=== PATIENT | female | born 1950 | race Hispanic/Latino ===

== ENCOUNTER 2018-03-03 20:32 | Inpatient (IN) | payer SELFPAY ==
[~2018-03-03 20:32] MED LIST: ISOVUE-370 76%-LOCM 1 ML ONE
[2018-03-03 21:48] LABS: #Eosinphils 0.1 thou/uL (0.0-0.7); #Lymphocytes 1.9 thou/uL (1.20-3.40); #Monocytes 0.8 thou/uL (0.11-0.59); #Neutrophils 3.4 thou/uL (1.40-6.50); %Basophils 0.1 % (0.0-1.0); %Eosinophils 1.3 % (0.0-10.0); %Lymphocytes 30.5 % (21.0-51.0); %Monocytes 13.1 % (0.0-10.0); Hemoglobin 12.7 g/dL (12.0-16.0); Mean Corpuscular HGB CONC 34.1 g/dL (32.0-36.0); Mean Platelet Volume 7.4 fL (7.4-10.4); Platelet Count 389 thou/uL (130-400); Red Blood Cell (RBC) Count 4.22 mill/uL (4.20-5.40); White Blood Cell (WBC) Count 6.2 thou/uL (4.8-10.8)
[2018-03-03 22:02] LABS: Bilirubin Negative (Negative); Blood, Urine Trace (Negative); Clarity CLEAR (Clear); Glucose, Urine (Dipstick) Negative (Negative); Leukocyte Negative (Negative); Nitrite Negative (Negative); Protein, Urine (Dipstick) Negative (Neg-Trace); Specific Gravity, Urine 1.012 (1.002-1.036)
[2018-03-03 22:04] LABS: Bacteria/HPF Rare-Few HPF (None Seen); Hyaline Casts/LPF 0-3 HYALINE CAST LPF (0-3 Hyaline); Pathc Cast-AUWi Flag 0.14 (0-2.49); RBC/HPF 0-3 HPF (0-3); Squamous Epithelial 0-3 HPF (0-3); WBC/HPF 0-3 HPF (0-3)
[2018-03-03 22:09] LABS: ALT (SGPT) 19 U/L (8-55); AST (SGOT) 20 U/L (5-34); Albumin 3.9 g/dL (3.4-4.8); Alkaline Phosphatase 96 U/L (40-150); Anion Gap 13 mmol/L (10-20); BUN (Urea Nitrogen) 15 mg/dL (9.8-20.1); Bilirubin, Total 0.3 mg/dL (0.2-1.2); Calc. Creatinine Clearance 0 mL/min (70-130); Calcium 9.8 mg/dL (7.8-10.44); Carbon Dioxide 25 mmol/L (23-31); Chloride 102 mmol/L (98-107); Estimated GFR-MDRD 70; Globulin 4.5 g/dL (2.4-3.5); Glucose 137 mg/dL (80-115); Potassium 3.3 mmol/L (3.5-5.1); Protein, Total 8.4 g/dL (6.0-8.3); Sodium 137 mmol/L (136-145)
[2018-03-03 22:13] LABS: CKMB 0.7 ng/mL (0-6.6); Troponin I Less than 0.010 ng/mL (< 0.028)
--- NOTE | 2018-03-03 23:45 | CT ---
CTA OF THE CHEST WITH CONTRAST 03/03/18 COMPARISON: None. HISTORY: Syncope and collapse with chest pain and night sweats. TECHNIQUE: Multiple contiguous axial images were obtained in a CTA of the chest with contrast per pulmonary embo lism protocol. 3D oblique MIP reformats and direct coronal reformats were performed. FINDINGS: The pulmonary arteries are well opacified without filling defects to suggest pulmonary emboli. The he art is normal in size. No hilar or mediastinal lymphadenopathy are seen. There is a large left pleur al effusion. There is significant collapse/atelectasis of the left lung secondary to large pleural ef fusion. No right pleural effusion is seen. No right sided infiltrates or nodules are seen. The visualized subdiaphragmatic structures are unremarkable. Degenerative changes are seen in the spi ne. The chest wall soft tissues are unremarkable. The patient has an aberrant right subclavian artery which courses posterior to the esophagus and trachea. IMPRESSION: 1. Large left pleural effusion with adjacent collapse/atelectasis of the left lung. 2. Aberrant right subclavian artery. 3. No evidence of pulmonary thromboembolism. POS: KARI
[2018-03-04] MEDS ORDERED: Azithromycin 500 MG VIAL ONE (00:20)
--- NOTE | 2018-03-04 00:59 | PDOC.FPRHP ---
- History of Present Illness Chief Complaint: syncope and collapse History of Present Illness: Lisa Caldwell is a 68 year old F with a PMH of htn, hld, and DM2 who presented to the ED for syncope and collapse. Patient is a filipino speaking lady from [place]. She moved here 13 year ago and has not been out of the country since arrival. She is accompanied by her daughter who provided the majority of the history. Daughter states that the patient has not been feeling well for the past month. States that she has had a cough and has complained of central chest pain and some dyspnea, as well as night sweats. Patient works at a restaurant doing dishes. Daughter also stated that for the last 15 days she has had decreased appetite and has lost about 20 pounds during that time. She has had associated nausea/vomiting and diarrhea during the last month as well. She was started on a new BP medication about a month ago but there have been no other recent changes in her medications. Denies any similar symptoms in the past. ED Course: In the ED, CT was done due to elevated D-Dimer, CT chest showed large right pleural effusion and no evidence of PE. Patient was given 2 g IV rocephin, 500 mg azithromycin, 2 L NS, Aspirin 324 mg, Dueneb 3 mL. - Allergies/Adverse Reactions Allergies Allergy/AdvReac Type Severity Reaction Status Date / Time No Known Drug Allergies Allergy Verified 03/04/18 01:57 - Home Medications Medication Instructions Recorded Confirmed Type Ergocalciferol (Vitamin D2) 50,000 unit PO Q7D 03/04/18 03/04/18 History [Vitamin D2] Simvastatin 20 mg PO HS 03/04/18 03/04/18 History metFORMIN [Glucophage] 500 mg PO BID-WM 03/04/18 03/04/18 History Comments: Unable to obtain complete reliable medication list at this time - History PMHx: HTN, HLD, Type 2 Diabetes Mellitus PSHx: None FHx: Denies any cancer in family Social: At least a 10, possibly more, pack year history of smoking quit 5 years ago, denies alcohol or drug use. - Review of Systems General: reports: weight/appetite/sleep changes (weight and appetite change), night sweats, fatigue. denies: fever/chills Eyes: denies: eye pain, vision changes ENT: denies: nasal congestion, rhinorrhea Respiratory: reports: cough, shortness of breath, exercise intolerance. denies : congestion Cardiovascular: reports: chest pain. denies: palpitation, edema, paroxysmal nocturnal dyspnea, orthopnea Gastrointestinal: reports: nausea, vomiting, diarrhea. denies: constipation, GI bleeding Genitourinary: denies: incontinence, dysuria, polyuria Skin: denies: rashes, lesions Musculoskeletal: denies: pain, tenderness, stiffness, swelling Neurological: reports: weakness. denies: numbness, syncope, seizure Psychological: reports: depression. denies: anxiety - Vital signs BP: 166/87 HR: 102 RR: 20 Tmax: 97.9 Pox: 93% on 2L Wt: 61 kg - Physical Exam Constitutional: NAD, awake, alert and oriented, well developed HEENT: normocephalic and atraumatic, PERRLA, EOMI, conjunctiva clear, no scleral icterus, grossly normal vision, TM's clear and intact, grossly normal hearing, normal nasal mucosa, MMM, oropharynx clear Neck: supple, FROM, trachea midline, no LAD Heart: RRR, normal S1/S2, no murmurs/rubs/gallops, pulses present, no edema Lungs: no respiratory distress -Lungs: decrease air movement on the entire right side Abdomen: soft, non-tender, bowel sounds present, no masses/distention Musculoskeletal: normal structure, normal tone, ROM grossly normal Neurological: no focal deficit, CN II-XII intact, normal sensation Skin: no rash/lesions, good turgor, capillary refill <2 seconds Heme/Lymphatic: no unusual bruising or bleeding, no purpura, no petechia Psychiatric: normal mood and affect FMR H&P: Results - Labs Result Diagrams: 03/04/18 03:55 03/04/18 03:55 Lab results: WBC 6.2 thou/uL (4.8-10.8) 03/03/18 21:10 Hgb 12.7 g/dL (12.0-16.0) 03/03/18 21:10 Hct 37.1 % (36.0-47.0) 03/03/18 21:10 MCV 88.0 fl (81.0-99.0) 03/03/18 21:10 Plt Count 389 thou/uL (130-400) 03/03/18 21:10 Neutrophils % 55.0 % (42.0-75.0) 03/03/18 21:10 Sodium 137 mmol/L (136-145) 03/03/18 21:10 Potassium 3.3 mmol/L (3.5-5.1) L 03/03/18 21:10 Chloride 102 mmol/L (98-107) 03/03/18 21:10 Carbon Dioxide 25 mmol/L (23-31) 03/03/18 21:10 BUN 15 mg/dL (9.8-20.1) 03/03/18 21:10 Creatinine 0.81 mg/dL (0.6-1.1) 03/03/18 21:10 Glucose 137 mg/dL (80-115) H 03/03/18 21:10 Calcium 9.8 mg/dL (7.8-10.44) 03/03/18 21:10 Total Bilirubin 0.3 mg/dL (0.2-1.2) 03/03/18 21:10 AST 20 U/L (5-34) 03/03/18 21:10 ALT 19 U/L (8-55) 03/03/18 21:10 Alkaline Phosphatase 96 U/L (40-150) 03/03/18 21:10 CK-MB (CK-2) 0.7 ng/mL (0-6.6) 03/03/18 21:10 Serum Total Protein 8.4 g/dL (6.0-8.3) H 03/03/18 21:10 Albumin 3.9 g/dL (3.4-4.8) 03/03/18 21:10 Urine Ketones Negative mg/dL (Negative) 03/03/18 21:49 Urine Blood Trace (Negative) H 03/03/18 21:49 Urine Nitrite Negative (Negative) 03/03/18 21:49 Ur Leukocyte Esterase Negative (Negative) 03/03/18 21:49 Urine RBC 0-3 HPF (0-3) 03/03/18 21:49 Urine WBC 0-3 HPF (0-3) 03/03/18 21:49 Ur Squamous Epith Cells 0-3 HPF (0-3) 03/03/18 21:49 Urine Bacteria Rare-Few HPF (None Seen) 03/03/18 21:49 - EKG Interpretation EKG: NSR without ST changes - Radiology Interpretation CT scan - chest Status: image reviewed by me, report reviewed by me (large left pleural effusion with adjacent collapse/atelectasis of left lung, abberant right subclavian artery, no evidence of pulmonary thromboembolism) FMR H&P: A/P - Problem List (1) Pleural effusion, left Current Visit: Yes Status: Acute Code(s): J90 - PLEURAL EFFUSION, NOT ELSEWHERE CLASSIFIED (2) Type 2 diabetes mellitus Current Visit: Yes Status: Chronic (3) HTN (hypertension) Current Visit: Yes Status: Chronic Code(s): I10 - ESSENTIAL (PRIMARY) HYPERTENSION (4) HLD (hyperlipidemia) Current Visit: Yes Status: Chronic Code(s): E78.5 - HYPERLIPIDEMIA, UNSPECIFIED - Plan (1) Large Left Pleural Effusion - Appears to be subacute, patient is hemodynamically stable, 1 mo hx of night sweats, weakness, weight loss - DDx includes malignancy vs infectious. PE r/o with CT chest, venogram pending - Continue supplement O2 to maintain oxygen sats - Empiric treatment with azithromycin and rocephin, no fevers or WBC - Checking TB quant, ur strep and legionella - Checking TSH - Airborne precautions until infectious cause ruled out - Will likely need therapeutic thoracentesis in AM - Consider consulting pulm in AM (2) DM2 - Holding home metformin - SSI, Accuchecks ACHS (3) HTN - Continue home medication regimen once med reconciliation complete - Continue to monitor - PRN labetalol IV (4) HLD - Continue home statin (5) Depression - Cont to monitor CODE STATUS: FULL CODE Disposition/LOS: Anticipate discharge home at hospital admission > 48 hr FMR H&P: Upper Level - Pertinent history 68 y/o F with 1 month history of weakness and decreased appetite presents for SOB. SOB has been present for 15 days. Associated cough, sputum production, weakness, weight loss(30lb), night sweats/chills. & leg pain. Did smoke for ~10 yrs but stopped 5 yrs ago. Currently only complains of SOB - Pertinent findings GEN: mild distress, labored breathing eYES: EOMI< PERRLA CARDIO: RR, no MRG, distal pulses present RESP: labored breathing and tachypnea, Diminished sound on L. No wheezing, ronchi, rales LE: nontender, no edema strength preserved NEURO: A&O x3, no focal deficits - Plan Date/Time: 03/04/18 0059 I, Ashish Torres, have evaluated this patient and agree with findings/plan as outlined by internet assessor resident. Pertinent changes/additions are listed here. 1. L Large Pleural Effusion: Infectious vs malignant cause. Have given empiric Rocephin/Azithromycin, but without leukocytosis/fever. cultures obtained. Plan for diagnostic/therapeutic thoracentesis tomorrow AM with fluid studies. On 2L BNC maintaining saturations. 2. T2DM: mild SSI, hold metformin 3. HTN: Continue home medications. BPs elevated in ED, continue to monitor. 4. HLD: On Statin 5. Hx/o Depression" monitor for symptoms 6. Leg Pain: Chronic problem, negative US for DVT 7. FEN: ADA diet, Maintenance IVF, Replete lytes as needed(Potassium 3.3) DVT ppx: Lovenox Attending Addendum - Attending Addendum Date/Time: 03/04/18 1122 I personally evaluated the patient and discussed the management with Dr. Alcaraz and team. I agree with and repeated the History, Examination, Assessment and Plan documented above with any addition or exceptions noted below. Patient with several week history of night sweats (has soaked sheets, had to change clothes reportedly) and subjective fevers, as well as cough and progressive worsening of breath. No chest pain. Acute hypoxic respiratory failure 2/2 new very large left pleural effusion. -Will plan on dx and tx thoracentesis, ultrasound guided. Monitor her respiratory status closely. Does not need additional support besides nasal cannula at this time but as risk for decompensation -on POCUS very large effusion extending almost to the apex of her lung on the left, no septations or signs of empyema -CT scan reviewed -plan for CC and dx, GS and Cx, LDH, total protein, glucose, AFB, ADA, cytology
[2018-03-04] MEDS ORDERED: HumaLOG 300 UNITS/3 ML VIAL SC PRN (01:07)
[2018-03-04] MEDS ORDERED: Dextrose 5% in Water 1,000 ML IV PRN (01:07)
[2018-03-04] MEDS ORDERED: Dextrose 50% Abboject 50 ML SYRINGE SLOW IVP PRN (01:07)
[2018-03-04] MEDS ORDERED: Lactated Ringer's 1,000 ML IV SCH (01:15)
[2018-03-04] MEDS ORDERED: Labetalol HCl 100 MG/20 ML VIAL SLOW IVP PRN (01:17)
[2018-03-04 01:19] LABS: Troponin I Less than 0.010 ng/mL (< 0.028)
[2018-03-04] MEDS: Melatonin 3 MG TAB PO PRN ×2 (03:16→21:09)
[2018-03-04] MEDS: Potassium Chloride 20 MEQ in Lactated Ringer's 1,000 ML IV SCH ×2 (03:16→18:49)
[2018-03-04 04:51] LABS: #Eosinphils 0.1 thou/uL (0.0-0.7); #Lymphocytes 1.7 thou/uL (1.20-3.40); #Monocytes 0.7 thou/uL (0.11-0.59); #Neutrophils 3.2 thou/uL (1.40-6.50); %Basophils 0.1 % (0.0-1.0); %Eosinophils 1.7 % (0.0-10.0); %Lymphocytes 30.1 % (21.0-51.0); %Monocytes 12.5 % (0.0-10.0); %Neutrophils 55.6 % (42.0-75.0); Hemoglobin 13.2 g/dL (12.0-16.0); Mean Corpuscular HGB CONC 33.5 g/dL (32.0-36.0); Mean Corpuscular Hemoglobin 29.5 pg (27.0-31.0); Mean Corpuscular Volume 87.9 fl (81.0-99.0); Mean Platelet Volume 7.3 fL (7.4-10.4); Platelet Count 387 thou/uL (130-400); RBC Distribution Width 12.1 % (11.5-14.5); Red Blood Cell (RBC) Count 4.47 mill/uL (4.20-5.40); White Blood Cell (WBC) Count 5.7 thou/uL (4.8-10.8)
[2018-03-04 05:10] LABS: Anion Gap 14 mmol/L (10-20); BUN (Urea Nitrogen) 10 mg/dL (9.8-20.1); Calc. Creatinine Clearance 82 mL/min (70-130); Calcium 9.3 mg/dL (7.8-10.44); Carbon Dioxide 22 mmol/L (23-31); Chloride 104 mmol/L (98-107); Estimated GFR-MDRD Greater than 90; Glucose 104 mg/dL (80-115); Potassium 3.9 mmol/L (3.5-5.1); Sodium 136 mmol/L (136-145)
[2018-03-04 05:13] LABS: Troponin I Less than 0.010 ng/mL (< 0.028)
[2018-03-04] MEDS ORDERED: Ergocalciferol 1.25 MG(50,000 UNITS) CAP PO SCH (06:00)
[2018-03-04 07:45] LABS: Legionella Urinary Ag Negative (Negative); Strep pneumo Urine Ag NEGATIVE (NEGATIVE)
[2018-03-04] MEDS: Azithromycin 250 MG TAB PO SCH (08:18)
[2018-03-04] MEDS: Enoxaparin Sodium 40 MG/0.4 ML SYRINGE SC SCH (08:18)
[2018-03-04] MEDS: Ergocalciferol 1.25 MG(50,000 UNITS) CAP PO SCH (08:22)
--- NOTE | 2018-03-04 08:28 | ULT ---
PRELIMINARY REPORT/[facility]/EMERGENTY AFTER-HOURS PROCEDURE US Duplex Bilateral Lower Extremity Veins CLINICAL HISTORY: 68 years old, female; Pain and abnormal findings; Abnormal lab test; Elevated d-dimer; Leg, lower; Bi lateral TECHNIQUE: Real-time duplex ultrasound scan of the bilateral lower extremity veins integrating B-mode two dimens ional vascular structure, Doppler spectral analysis, color flow Doppler imaging and compression. COMPARISON: No relevant prior studies available. FINDINGS: Right leg: No visible clot in the included veins. The included veins appear normally compressible. Duplex Doppler evaluation demonstrates flow in the evaluated veins. Left leg: No visible clot in the included veins. The included veins appear normally compressible. Duplex Doppler evaluation demonstrates flow in the evaluated veins. IMPRESSION: No evidence of acute right lower extremity DVT. No evidence of acute left lower extremity DVT. Thank you for allowing us to participate in the care of your patient. Dictated and Authenticated by: Chris Recio MD 03/04/2018 12:35 AM Central Time ([place] & [place]) ULTRASOUND VENOUS BILATERAL DOPPLER: HISTORY: Elevated D-dimer. TECHNIQUE: Real-time, carmona scale, color flow, and spectral analysis of the bilateral lower extremity venous syst ems was performed with a linear ray transducer. The common femoral, femoral, proximal portion of gre ater saphenous and deep femoral veins as well as the popliteal and posterior tibial veins were interr ogated. IMPRESSION: No deep venous thrombosis. POS: TOM
[2018-03-04] MEDS ORDERED: Lidocaine 1% (PF) 30 ML VIAL SC SCH (09:00)
[2018-03-04 09:25] LABS: INR-International Normal Ratio 1.1; Prothrombin Time 14.8 SEC (12.0-14.7)
[2018-03-04 09:26] LABS: PTT 45.8 SEC (22.9-36.1)
[2018-03-04] MEDS ORDERED: Lidocaine 1% w/Epinephrine 1:100K 20 ML VIAL ONE (11:00)
--- NOTE | 2018-03-04 12:02 | OP-2 ---
THORACENTESIS PROCEDURE NOTE INDICATION: Large left-sided pleural effusion. OPERATORS: Dr. Rekha Carranza and Dr. Deepak Crowder. ATTENDING PHYSICIAN: Dr. Vu Salvador. In attendance was also Dr. Lucrecia Dunne and patient's granddaughter. CONSENT: Consent was obtained from the patient, Mr. Caldwell prior to the procedure. Indication, risks and benefits were explained at length in the patient's language. PROCEDURE SUMMARY: A timeout was performed and the chest x-ray was reviewed. The appropriate side was confirmed and marked. My hands were washed immediately prior to the procedure. The patient was prepped and draped in a sterile manner using chlorhexidine scrub after the appropriate level was percussed and confirmed by ultrasound. A 5-cm effusion pocket was seen prior to procedure. Lidocaine 1% was used to anesthetize the skin, subcutaneous tissue, superior aspect of the rib, periosteum and parietal pleura. A finder needle was introduced over the superior aspect of the rib to locate the pleural fluid. Approximately 1 cm of color straw colored fluid was aspirated at a depth of approximately 2 cm. A 10-blade scalpel was used to alexei the skin at the insertion site. The [id number]-A-[id number] needle was then introduced through the skin incision into the pleural space using negative aspiration pressure and the red colorimetric indicator to confirm appropriate positioning of the needle. The thoracentesis catheter was then threaded without difficulty. A 860 mL of straw colored fluid was removed without difficulty. The catheter was then removed. No immediate complications were noted during the procedure. patient stated she was breathing better after the procedure. A post-procedure chest x- ray is pending at the time of this note. The fluid will be sent for studies to include cell count and histology, Gram stain and culture, LDH, pleural fluid, total protein of fluid, glucose of the fluid, AFB, smear and culture, ADA, cytology. Estimated blood loss is 2 Ml. Coagulation studies were performed prior to the procedure as well and were within normal limits. Dr. Vu Salvador, attending physician, who was present for the entire procedure. [facility]
[2018-03-04] MEDS: Acetaminophen 325 MG TAB PO PRN ×2 (12:03→19:08)
[2018-03-04 13:01] LABS: BF Color Yellow; Body Fluid Source THORACENTESIS FLD; Clarity Hazy (Clear); RBC Background Count 0.001; Tube # 1
[2018-03-04 13:02] LABS: WBC/NonHematic-Auto 3620 /cumm
[2018-03-04 13:23] LABS: Protein, Total 7.3 g/dL (6.0-8.3)
--- NOTE | 2018-03-04 13:28 | RAD ---
PORTABLE CHEST: HISTORY: Post thoracentesis. CORRELATION: CT chest from yesterday. FINDINGS: There continues to be moderate sized left pleural effusion, although the size of the effusion does ap pear decreased, consistent with the history of thoracentesis. The right lung is clear with no eviden ce of right-sided effusion. Heart size is prominent but not adequately evaluated due to the large le ft effusion. No pneumothorax is identified. IMPRESSION: Moderate left pleural effusion remains. POS: [facility]
[2018-03-04 14:01] LABS: BF RBC Count - Manual 4000 /cumm
[2018-03-04 16:38] LABS: BF Segmented Neutrophils 3 %; Cell Count Non Hematic 12 %; Lymphocytes 85 %
[2018-03-04] MEDS ORDERED: Atorvastatin Calcium 10 MG TAB PO SCH (21:00)
[2018-03-04] MEDS: Atorvastatin Calcium 10 MG TAB PO SCH (21:08)
[2018-03-05] MEDS: Potassium Chloride 20 MEQ in Lactated Ringer's 1,000 ML IV SCH ×4 (04:37→21:04)
[2018-03-05 05:41] LABS: #Eosinphils 0.2 thou/uL (0.0-0.7); #Lymphocytes 1.4 thou/uL (1.20-3.40); #Monocytes 0.6 thou/uL (0.11-0.59); #Neutrophils 2.7 thou/uL (1.40-6.50); %Basophils 0.3 % (0.0-1.0); %Eosinophils 3.6 % (0.0-10.0); %Lymphocytes 29.1 % (21.0-51.0); %Monocytes 12.4 % (0.0-10.0); %Neutrophils 54.6 % (42.0-75.0); Hemoglobin 12.4 g/dL (12.0-16.0); Mean Corpuscular HGB CONC 33.4 g/dL (32.0-36.0); Mean Corpuscular Hemoglobin 29.6 pg (27.0-31.0); Mean Corpuscular Volume 88.6 fl (81.0-99.0); Mean Platelet Volume 7.4 fL (7.4-10.4); Platelet Count 374 thou/uL (130-400); White Blood Cell (WBC) Count 4.9 thou/uL (4.8-10.8)
[2018-03-05 06:02] LABS: Anion Gap 9 mmol/L (10-20); BUN (Urea Nitrogen) 10 mg/dL (9.8-20.1); Calc. Creatinine Clearance 80 mL/min (70-130); Calcium 9.3 mg/dL (7.8-10.44); Carbon Dioxide 24 mmol/L (23-31); Chloride 107 mmol/L (98-107); Estimated GFR-MDRD Greater than 90; Glucose 139 mg/dL (80-115); Potassium 4.3 mmol/L (3.5-5.1); Sodium 136 mmol/L (136-145)
[2018-03-05] MEDS: Enoxaparin Sodium 40 MG/0.4 ML SYRINGE SC SCH (09:45)
[2018-03-05] MEDS: Azithromycin 250 MG TAB PO SCH (09:45)
--- NOTE | 2018-03-05 11:32 | PDOC.FM ---
- Subjective Subjective: Patient reports breathing is much improved compared to admission. She underwent thoracentesis yesterday, 860cc of straw colored fluid removed. Still requiring oxygen via NS to maintain sats. - Objective MAR Reviewed: Yes Vital Signs & Weight: Vital Signs (12 hours) Temp Pulse Resp BP Pulse Ox 03/05/18 04:00 98.2 F 83 18 149/76 H 95 03/05/18 00:00 98.8 F 88 18 137/73 92 L Weight Weight 60.464 kg I&O: 03/04/18 03/05/18 03/06/18 06:59 06:59 06:59 Intake Total 720 Balance 720 Result Diagrams: 03/05/18 04:49 03/05/18 04:49 <Deepak Crowder - Last Filed: 03/05/18 11:30> - Objective Vital Signs & Weight: Vital Signs (12 hours) Temp Pulse Resp BP Pulse Ox 03/05/18 12:00 97.4 F L 84 18 149/76 H 95 03/05/18 08:00 97.4 F L 84 18 144/80 H 95 03/05/18 04:00 98.2 F 83 18 149/76 H 95 Weight Weight 60.464 kg I&O: 03/04/18 03/05/18 03/06/18 06:59 06:59 06:59 Intake Total 720 720 Balance 720 720 Result Diagrams: 03/05/18 04:49 03/05/18 04:49 <Vu Salvador - Last Filed: 03/05/18 15:17> Phys Exam - Physical Examination Constitutional: NAD HEENT: moist MMs Neck: no nodes, no JVD Respiratory: no wheezing, no rales Cardiovascular: RRR, no significant murmur Gastrointestinal: soft, non-tender Musculoskeletal: no edema Neurological: moves all 4 limbs Psychiatric: normal affect, A&O x 3 <Deepak Crowder - Last Filed: 03/05/18 11:30> Dx/Plan (1) Exudative pleural effusion Code(s): J90 - PLEURAL EFFUSION, NOT ELSEWHERE CLASSIFIED Status: Acute Plan: -concerning given history of unintentional 20lbs weight loss over last few months coupled with night sweats -[place] [facility] -thoracentesis performed 03/04 and 860cc of straw colored fluid removed -preliminary studies show exudative process with further studies pending -Pulm consulted and following -symptomatically improved at this time (2) HLD (hyperlipidemia) Code(s): E78.5 - HYPERLIPIDEMIA, UNSPECIFIED Status: Chronic Plan: -continue statin (3) HTN (hypertension) Code(s): I10 - ESSENTIAL (PRIMARY) HYPERTENSION Status: Chronic Plan: -well controlled on no medications (4) Type 2 diabetes mellitus Status: Chronic Plan: -accuchecks qACHS -no SSI required in last 24 hours - Plan Plan: -Pulm following, we appreciate recommendations -f/u pleural fluid studies <Deepak Crowder - Last Filed: 03/05/18 11:30> (1) Pleural effusion, left Code(s): J90 - PLEURAL EFFUSION, NOT ELSEWHERE CLASSIFIED Status: Acute (2) Type 2 diabetes mellitus Status: Chronic (3) HTN (hypertension) Code(s): I10 - ESSENTIAL (PRIMARY) HYPERTENSION Status: Chronic (4) HLD (hyperlipidemia) Code(s): E78.5 - HYPERLIPIDEMIA, UNSPECIFIED Status: Chronic <Vu Salvador - Last Filed: 03/05/18 15:17> Attending Addendum - Attending Addendum Date/Time: 03/05/18 2875 I personally evaluated the patient and discussed the management with Dr. Crowder. I agree with and repeated the History, Examination, Assessment and Plan documented above with any addition or exceptions noted below. Improved sob this AM. No chest pain. Thora site feels fine. Had sweats last night, no recorded fever. No n/v or diarrhea/constipation. + cough still, no hemoptysis. RRR s M Right lung CTAB Left lung now audible, vesicular superiorly and bronchial at bases Await study results and any additional pulm recommendations. Likely repeat CXR. <Vu Salvador - Last Filed: 03/05/18 15:17>
[2018-03-05] MEDS: Acetaminophen 325 MG TAB PO PRN (14:55)
[2018-03-05] MEDS: cefTRIAXone\\ROCEPHIN 1 GM in Sodium Chloride 0.9% 100 ML IVPB SCH (15:43)
[2018-03-05] MEDS: Atorvastatin Calcium 10 MG TAB PO SCH (21:04)
--- NOTE | 2018-03-06 00:34 | CON ---
DATE OF CONSULTATION: 03/05/2018 SERVICE: Pulmonary Medicine. REASON FOR CONSULTATION: Pleural effusion. HISTORY OF PRESENT ILLNESS: The patient is a 68-year-old white female with past medical history significant for one-month history of weight loss of 20-30 pounds, night sweats and a little bit of cough. It is really not productive of much sputum. She presented to the emergency department. A CT PE was considered. She ended up getting a PE protocol, which was unremarkable. That being said, there was a very large left-sided pleural effusion present. She underwent a thoracentesis last night and it demonstrates a clear lymphocytic exudate. ADA was already sent for. Cytology was done and somebody in the Pathology Department has ordered flow cytometry. I was consulted to follow along for the time being. PAST MEDICAL HISTORY: 1. Hypertension. 2. Dyslipidemia. 3. Type 2 diabetes mellitus. PAST SURGICAL HISTORY: Thoracentesis on the left. FAMILY HISTORY: Noncontributory. SOCIAL HISTORY: She has a [id number] history of smoking, but quit 5 years ago. She denies any alcohol or illicit drug use. She moved here from [facility] over 13 years ago. She denies any known exposure to tuberculosis. ALLERGIES: No known drug allergies. MEDICATIONS: List of her inpatient medications was reviewed. No specific updates were made at this time. REVIEW OF SYSTEMS: General, head, ears, eyes, nose, throat, cardiovascular, respiratory, GI, , musculoskeletal, neurologic and skin is negative except as mentioned in the HPI. PHYSICAL EXAMINATION: VITAL SIGNS: Afebrile, pulse 84, blood pressure 149/76, respirations 18, saturation 95% on 2 liters nasal cannula. GENERAL: The patient is awake and alert, in no apparent distress. LUNGS: Excellent air entry on the right. There is a little reduced air entry at the left base. There is no prolonged expiratory phase. I do not appreciate wheezing or rhonchi. There are no crackles. HEART: Normal rate and regular. ABDOMEN: Soft, nontender, nondistended. Bowel sounds are positive. MUSCULOSKELETAL: No cyanosis or clubbing. There is no pitting in the bilateral lower extremities. NEUROLOGIC: Grossly nonfocal. LABORATORY DATA: WBC 4.9, hemoglobin 12.4, platelets 374,000. Monocyte count is normal. The differential is also normal. INR 1.1, D-dimer 11.42. Basic metabolic profile is unremarkable. Liver function studies are unremarkable. Troponin negative x3, LDH 219, serum protein 7.3. Urinalysis is unremarkable. She has trace blood, but red blood cells are 0-3. Lymphocyte count in the pleural fluid is 85%. It is a weak exudate by 3/3 criteria. Of note, no recent diuretics have been provided. The Strep and Legionella urine antigens were unremarkable. An ADA is currently pending. Urine culture, blood cultures x2, AFB smear in the pleural broth is all unremarkable. Body fluid culture is also negative to date. IMAGIN. Chest x-ray demonstrates interval improvement in the left-sided pleural effusion. Otherwise, there is no acute pleural parenchymal abnormality identified. 2. Ultrasound of the bilateral lower extremities demonstrates no evidence of DVT. 3. CTA of the chest demonstrates no evidence of a PE. There is a large left- sided pleural effusion with adjacent collapse/atelectasis of the left lung. Aberrant right subclavian artery is identified. No evidence of pulmonary thromboembolism is present. Additionally, there are no infiltrates characteristic of parenchymal pulmonary tuberculosis. ASSESSMENT: 1. Acute hypoxic respiratory failure, resolved. 2. Pleural effusion on the left, lymphocytic exudate. 3. Recent history of B symptoms. DISCUSSION AND PLAN: The patient had a lymphocytic predominant effusion. I will add rheumatoid factor and BECKY to tomorrow morning studies looking into inflammatory conditions. I think this will clipper and turner to be a lymphoma, though multiple things remain on her differential. The patient does not have any pleural parenchymal abnormalities on her CT of the chest. As such, if this is tuberculosis, she is not likely infectious. Pulmonary Critical Care will continue to follow along for the time being. The flow cytometry was ordered through the Pathology Department, so my suspicion is they saw something that was of concern. 70 minutes have been devoted to this patient in various activities. I personally reviewed all imaging studies and laboratory data noted within this document. For fifty percent of this time, I was interacting with the patient at the bedside or coordinating care with the care team. For the remainder of the time I was immediately available to the patient in the hospital unit. JOE
[2018-03-06] MEDS: Melatonin 3 MG TAB PO PRN ×2 (00:40→21:30)
[2018-03-06 05:22] LABS: #Eosinphils 0.1 thou/uL (0.0-0.7); #Lymphocytes 1.5 thou/uL (1.20-3.40); #Monocytes 0.7 thou/uL (0.11-0.59); #Neutrophils 2.9 thou/uL (1.40-6.50); %Basophils 0.2 % (0.0-1.0); %Eosinophils 2.5 % (0.0-10.0); %Lymphocytes 28.5 % (21.0-51.0); %Monocytes 13.6 % (0.0-10.0); %Neutrophils 55.2 % (42.0-75.0); Mean Corpuscular HGB CONC 33.4 g/dL (32.0-36.0); Mean Corpuscular Hemoglobin 29.8 pg (27.0-31.0); Mean Corpuscular Volume 89.1 fl (81.0-99.0); Mean Platelet Volume 7.4 fL (7.4-10.4); Platelet Count 393 thou/uL (130-400); Red Blood Cell (RBC) Count 4.38 mill/uL (4.20-5.40); White Blood Cell (WBC) Count 5.2 thou/uL (4.8-10.8)
[2018-03-06 05:37] LABS: Anion Gap 13 mmol/L (10-20); BUN (Urea Nitrogen) 12 mg/dL (9.8-20.1); Calc. Creatinine Clearance 68 mL/min (70-130); Calcium 9.7 mg/dL (7.8-10.44); Carbon Dioxide 24 mmol/L (23-31); Chloride 102 mmol/L (98-107); Estimated GFR-MDRD 78; Glucose 122 mg/dL (80-115); Potassium 4.4 mmol/L (3.5-5.1); Sodium 135 mmol/L (136-145)
--- NOTE | 2018-03-06 06:42 | PDOC.FM ---
- Subjective Subjective: Pt seen at bedside in NAD. DANDRE overnight. Pt notes she feels better, she endorses some cough with deep inspiration but otherwise denies CP, SOB, abd pain , NVD. - Objective MAR Reviewed: Yes Vital Signs & Weight: Vital Signs (12 hours) Temp Pulse Resp BP Pulse Ox 03/06/18 04:52 98.1 F 89 14 129/70 96 03/06/18 01:33 92 L 03/05/18 19:45 97.9 F 94 18 82 L 03/05/18 19:05 97.9 F 94 18 176/85 H 92 L Weight Weight 60.464 kg I&O: 03/04/18 03/05/18 03/06/18 06:59 06:59 06:59 Intake Total 720 1080 Balance 720 1080 Result Diagrams: 03/06/18 05:02 03/06/18 05:02 <Elie Coleman - Last Filed: 03/06/18 08:50> - Objective Vital Signs & Weight: Vital Signs (12 hours) Temp Pulse Resp BP Pulse Ox 03/06/18 09:19 97.4 F L 86 16 137/82 95 03/06/18 04:52 98.1 F 89 14 129/70 96 03/06/18 01:33 92 L Weight Weight 60.464 kg I&O: 03/05/18 03/06/18 03/07/18 06:59 06:59 06:59 Intake Total 720 1080 Balance 720 1080 Result Diagrams: 03/06/18 05:02 03/06/18 05:02 <Vu Salvador - Last Filed: 03/06/18 09:32> Phys Exam - Physical Examination Constitutional: NAD HEENT: moist MMs Respiratory: no wheezing some diminished sounds left lung base Cardiovascular: RRR, no significant murmur Gastrointestinal: soft, non-tender Musculoskeletal: no edema Neurological: moves all 4 limbs Psychiatric: normal affect, A&O x 3 <Elie Coleman - Last Filed: 03/06/18 08:50> Dx/Plan (1) Exudative pleural effusion Code(s): J90 - PLEURAL EFFUSION, NOT ELSEWHERE CLASSIFIED Status: Acute Plan: -thoracentesis performed 03/04 with 860cc of fluid removed -prelim studies show exudative fluid with additional cultures and flow cytometry pending -pt is [place] of [place] and endorses unintentional weight loss along with night sweats. ddx concerning for TB or malignancy. -quant gold pending -pulmonology consulted, recommendations greatly appreciated -symptomatically improving but still requiring supplemental oxygen via NC, continue attempts to wean as tolerated (2) Type 2 diabetes mellitus Status: Chronic Plan: -continue with accuchecks and SSI (3) HLD (hyperlipidemia) Code(s): E78.5 - HYPERLIPIDEMIA, UNSPECIFIED Status: Chronic Plan: -continue statin - Plan Plan: disposition: Pt stable. Awaiting further pleural fluid studies. Pulmonology recommendations greatly appreciated. Continue to monitor closely. <Elie Coleman - Last Filed: 03/06/18 08:50> (1) Pleural effusion, left Code(s): J90 - PLEURAL EFFUSION, NOT ELSEWHERE CLASSIFIED Status: Acute (2) Type 2 diabetes mellitus Status: Chronic (3) HTN (hypertension) Code(s): I10 - ESSENTIAL (PRIMARY) HYPERTENSION Status: Chronic (4) HLD (hyperlipidemia) Code(s): E78.5 - HYPERLIPIDEMIA, UNSPECIFIED Status: Chronic <Vu Salvador - Last Filed: 03/06/18 09:32> Attending Addendum - Attending Addendum Date/Time: 03/06/18931 I personally evaluated the patient and discussed the management with Dr. Coleman. I agree with and repeated the History, Examination, Assessment and Plan documented above with any addition or exceptions noted below. Still requiring O2. Acute hypoxic resp failure 2/2 pleural effusion -O2, wean as able -await studies -appreciate pulmonology recommendations <Vu Salvador - Last Filed: 03/06/18 09:32>
[2018-03-06] MEDS: Azithromycin 250 MG TAB PO SCH (09:20)
[2018-03-06] MEDS: Potassium Chloride 20 MEQ in Lactated Ringer's 1,000 ML IV SCH ×2 (09:21→19:36)
[2018-03-06] MEDS: Enoxaparin Sodium 40 MG/0.4 ML SYRINGE SC SCH (09:22)
[2018-03-06 09:56] LABS: ANA Symphony (Qualitative) Negative (Negative); EliA RAS New Method **** NEW METHOD ****; Rheumatoid Factor IgA Antibody 5.3 IU/mL (<14 Negative); Rheumatoid Factor IgM Antibody 1.5 IU/mL (<3.5 Negative); dsDNA IgG Antibody 1.8 IU/mL (<10 Negative)
[2018-03-06] MEDS: cefTRIAXone\\ROCEPHIN 1 GM in Sodium Chloride 0.9% 100 ML IVPB SCH (12:46)
--- NOTE | 2018-03-06 13:37 | PRG ---
DATE OF SERVICE: 03/06/2018 SERVICE: Pulmonary Medicine. INTERVAL HISTORY: The patient is doing absolutely fantastic today. She denies any chest pressure, nausea, vomiting, fevers, chills, shortness of breath or cough. She has essentially returned to her usual state of health. She is interested in when she is going to be able to get home. I discussed with her once again the progress that needs to be made before she can get out of here. We really need to delineate what the next step is going to be. If we have a diagnosis, obviously, we will start her towards therapy. If we do not, she may need a thoracoscopic VATS surgery in the next couple of weeks. Either way, she needs to have close attention and follow up. PHYSICAL EXAMINATION: VITAL SIGNS: Afebrile, pulse 88, blood pressure 131/84, respirations 18, saturation 94% on 1 L nasal cannula. GENERAL: The patient is awake and alert, in no apparent distress. LUNGS: Excellent air entry on the right. The left side has decreased air entry. HEART: Normal rate, regular. ABDOMEN: Soft, nontender, nondistended. Bowel sounds are positive. MUSCULOSKELETAL: No cyanosis or clubbing. There is no pitting in the bilateral lower extremities. NEUROLOGIC: Grossly nonfocal. LABORATORY DATA: CBC is unremarkable. Chemistries are also unremarkable. Her hemoglobin is stable. BECKY screen is negative. Rheumatoid factor screen is also unremarkable. The ADA on the pleural fluid is currently pending. ASSESSMENT: 1. Acute hypoxic respiratory failure, minimal. 2. Pleural effusion on the left, lymphocytic exudate. 3. Recent history of B symptoms, resolving. DISCUSSION AND PLAN: The differential remains wide. We have multiple studies that are currently pending. If this is tuberculous effusion, she is not infectious. Pathology must have seen something to prompt them towards getting flow cytometry. We will await the results of these studies before the next step is approached. Serologies are negative making sterile inflammatory effusions less likely. MTDD
[2018-03-06] MEDS: Atorvastatin Calcium 10 MG TAB PO SCH (21:30)
--- NOTE | 2018-03-07 06:18 | PDOC.FM ---
- Subjective Subjective: Pt seen at bedside in NAD. DANDRE overnight. No family at bedside. Pt notes she feels well, she still endorses some cough with deep inspiration but otherwise denies CP, SOB, abd pain, NVD. - Objective MAR Reviewed: Yes Vital Signs & Weight: Vital Signs (12 hours) Temp Pulse Resp BP Pulse Ox 03/07/18 04:00 98.2 F 91 18 132/72 94 L 03/06/18 20:15 98.9 F 99 22 H 03/06/18 19:36 98.9 F 99 22 H 136/78 92 L Weight Weight 60.464 kg I&O: 03/05/18 03/06/18 03/07/18 06:59 06:59 06:59 Intake Total 720 1080 3840 Balance 720 1080 3840 Result Diagrams: 03/06/18 05:02 03/06/18 05:02 <Elie Coleman - Last Filed: 03/07/18 06:49> - Objective Vital Signs & Weight: Vital Signs (12 hours) Temp Pulse Resp BP Pulse Ox 03/07/18 04:00 98.2 F 91 18 132/72 94 L Weight Weight 133 lb 4.8 oz I&O: 03/06/18 03/07/18 03/08/18 06:59 06:59 06:59 Intake Total 1080 3840 Balance 1080 3840 Result Diagrams: 03/06/18 05:02 03/06/18 05:02 <Andrea Beebe - Last Filed: 03/07/18 09:15> Phys Exam - Physical Examination Constitutional: NAD HEENT: moist MMs Respiratory: no wheezing, clear to auscultation bilateral some decreased air entry left base Cardiovascular: RRR, no significant murmur Gastrointestinal: soft, non-tender Musculoskeletal: no edema Neurological: non-focal, moves all 4 limbs Psychiatric: normal affect, A&O x 3 Skin: cap refill <2 seconds <Elie Coleman - Last Filed: 03/07/18 06:49> Dx/Plan (1) Exudative pleural effusion Code(s): J90 - PLEURAL EFFUSION, NOT ELSEWHERE CLASSIFIED Status: Acute Plan: -thoracentesis performed 03/04 with 860cc of fluid removed -prelim studies show lymphocytic exudative fluid with additional cultures and flow cytometry pending -pt is [place] and endorses unintentional weight loss along with night sweats. ddx concerning for TB or malignancy. -quant gold pending -flow cytometry reflex ordered by pathology, awaiting results -pulmonology consulted, recommendations greatly appreciated -autoimmune studies negative -symptomatically improving but still requiring supplemental oxygen via NC, continue attempts to wean as tolerated (2) Acute respiratory failure with hypoxia Code(s): J96.01 - ACUTE RESPIRATORY FAILURE WITH HYPOXIA Status: Acute Plan: -2/2 large left pleural effusion, improved -continue to wean oxygen as tolerated (3) Type 2 diabetes mellitus Status: Chronic Plan: -continue with accuchecks and SSI (4) HLD (hyperlipidemia) Code(s): E78.5 - HYPERLIPIDEMIA, UNSPECIFIED Status: Chronic Plan: -continue statin - Plan Plan: disposition: Pt stable. Still awaiting quant gold and flow cytometry. Pulmonology recommendations greatly appreciated. Pt states she will likely go back to [facility] for follow up. Continue to monitor. <Elie Coleman - Last Filed: 03/07/18 06:49> Attending Addendum - Attending Addendum Date/Time: 03/07/18913 I personally evaluated the patient and discussed the management with Dr. Coleman I agree with the History, Examination, Assessment and Plan documented above with any addition or exceptions noted below. Follow the TB gold report. Treat hypoxia. <Andrea Beebe - Last Filed: 03/07/18 09:15>
[2018-03-07] MEDS: Azithromycin 250 MG TAB PO SCH (09:38)
[2018-03-07] MEDS: Enoxaparin Sodium 40 MG/0.4 ML SYRINGE SC SCH (09:39)
--- NOTE | 2018-03-07 13:46 | PRG ---
DATE OF SERVICE: 03/07/2018 OBJECTIVE: VITAL SIGNS: Ms. Caldwell is afebrile, heart rate is 91, respiratory rate is 18, oximetry is 94%. LUNGS: Remarkable for decreased breath sounds in her left base. HEART: Regular rhythm. ABDOMEN: Soft. LABORATORY DATA: She has no new lab. Pathology was negative. Her pleural fluid was exudate with lymphocyte predominance. PLAN: She will probably end up needing a pleural biopsy. Flow studies were apparently ordered.
[2018-03-07] MEDS: cefTRIAXone\\ROCEPHIN 1 GM in Sodium Chloride 0.9% 100 ML IVPB SCH (14:57)
[2018-03-07] MEDS: Atorvastatin Calcium 10 MG TAB PO SCH (20:51)
[2018-03-07] MEDS: Melatonin 3 MG TAB PO PRN (21:57)
[2018-03-08] MEDS: Acetaminophen 325 MG TAB PO PRN (05:08)
--- NOTE | 2018-03-08 06:40 | PDOC.FM ---
- Subjective Subjective: Pt seen at bedside in NAD. DANDRE overnight. Daughter in law at bedside. Pt notes she feels well, she still endorses some cough with deep inspiration but otherwise denies CP, SOB, abd pain, NVD. - Objective MAR Reviewed: Yes Vital Signs & Weight: Vital Signs (12 hours) Temp Pulse Resp BP Pulse Ox 03/08/18 05:00 97.2 F L 95 16 132/84 95 03/08/18 02:00 93 L 03/07/18 19:59 99.4 F 98 18 143/92 H 93 L Weight Weight 60.464 kg I&O: 03/06/18 03/07/18 03/08/18 06:59 06:59 06:59 Intake Total 1080 3840 1440 Balance 1080 3840 1440 Result Diagrams: 03/06/18 05:02 03/06/18 05:02 <Elie Coleman - Last Filed: 03/08/18 07:21> - Objective Vital Signs & Weight: Vital Signs (12 hours) Temp Pulse Resp BP Pulse Ox 03/08/18 07:57 96.3 F L 95 16 135/82 93 L 03/08/18 05:00 97.2 F L 95 16 132/84 95 03/08/18 02:00 93 L Weight Weight 132 lb 8 oz I&O: 03/07/18 03/08/18 03/09/18 06:59 06:59 06:59 Intake Total 3840 1440 420 Balance 3840 1440 420 Result Diagrams: 03/06/18 05:02 03/06/18 05:02 <Andrea Beebe - Last Filed: 03/08/18 09:15> Phys Exam - Physical Examination Constitutional: NAD HEENT: moist MMs Respiratory: no wheezing, clear to auscultation bilateral Cardiovascular: RRR, no significant murmur Gastrointestinal: soft, non-tender Musculoskeletal: no edema Neurological: moves all 4 limbs Psychiatric: normal affect, A&O x 3 Skin: cap refill <2 seconds <Elie Coleman - Last Filed: 03/08/18 07:21> Dx/Plan (1) Exudative pleural effusion Code(s): J90 - PLEURAL EFFUSION, NOT ELSEWHERE CLASSIFIED Status: Acute Plan: -thoracentesis performed 03/04 with 860cc of fluid removed -prelim studies show lymphocytic exudative fluid with additional cultures and flow cytometry pending -pt is [place] and endorses unintentional weight loss along with night sweats. ddx concerning for TB or malignancy. -quant gold pending -flow cytometry reflex ordered by pathology, awaiting results -pulmonology consulted, recommendations greatly appreciated -autoimmune studies negative (2) Acute respiratory failure with hypoxia Code(s): J96.01 - ACUTE RESPIRATORY FAILURE WITH HYPOXIA Status: Resolved Plan: -2/2 large left pleural effusion, improved -pt stable off of nasal canula this AM (3) Type 2 diabetes mellitus Status: Chronic Plan: -continue with accuchecks and SSI (4) HLD (hyperlipidemia) Code(s): E78.5 - HYPERLIPIDEMIA, UNSPECIFIED Status: Chronic Plan: -continue statin - Plan Plan: disposition: Pt stable. Still awaiting quant gold and flow cytometry. Pulmonology recommendations greatly appreciated. Pt states she will likely go back to [facility] for follow up. Continue to monitor. <Elie Coleman - Last Filed: 03/08/18 07:21> Attending Addendum - Attending Addendum Date/Time: 03/08/18 1721 I personally evaluated the patient and discussed the management with Dr. Coleman I agree with the History, Examination, Assessment and Plan documented above with any addition or exceptions noted below. Continue current care for now with pulmonary services. <Andrea Beebe - Last Filed: 03/08/18 09:15>
[2018-03-08] MEDS: Enoxaparin Sodium 40 MG/0.4 ML SYRINGE SC SCH (09:38)
[2018-03-08] MEDS: cefTRIAXone\\ROCEPHIN 1 GM in Sodium Chloride 0.9% 100 ML IVPB SCH (13:09)
--- NOTE | 2018-03-08 15:17 | PRG ---
DATE OF SERVICE: 03/08/2018 SUBJECTIVE: Slept well last night. She has no complaints. OBJECTIVE: VITAL SIGNS: She is afebrile, heart rate 95, respiratory rate 16, oximetry is 93 on room air. His I 's 95, blood pressure 135/82. LUNGS: She has clear lung carr. HEART: Regular rhythm. ABDOMEN: Soft. LABORATORY DATA: Chem-7 have been repeated. Pathology was negative. IMPRESSION: What I could tell full studies are still pending. It is unclear when they will be back. If they are not back tomorrow morning, pleural biopsy should be considered.
[2018-03-08] MEDS: Atorvastatin Calcium 10 MG TAB PO SCH (20:43)
[2018-03-09] MEDS: Acetaminophen 325 MG TAB PO PRN (09:12)
[2018-03-09] MEDS: Enoxaparin Sodium 40 MG/0.4 ML SYRINGE SC SCH (09:15)
--- NOTE | 2018-03-09 09:20 | PDOC.FM ---
- Subjective Subjective: No acute events overnight. Denies shortness of breath, cough, chest pain this am. - Objective MAR Reviewed: Yes Vital Signs & Weight: Vital Signs (12 hours) Temp Pulse Resp BP Pulse Ox 03/09/18 07:59 99.1 F 97 20 123/68 91 L 03/09/18 05:28 92 L 03/09/18 04:42 98.9 F 104 H 20 133/73 93 L Weight Weight 60.101 kg I&O: 03/08/18 03/09/18 03/10/18 06:59 06:59 06:59 Intake Total 1440 1320 Balance 1440 1320 Result Diagrams: 03/06/18 05:02 03/06/18 05:02 <Chitra Jarvis - Last Filed: 03/09/18 11:22> - Objective Vital Signs & Weight: Vital Signs (12 hours) Temp Pulse Resp BP Pulse Ox 03/09/18 16:28 98.3 F 91 16 138/70 91 L 03/09/18 12:58 98 F 93 20 119/73 91 L 03/09/18 07:59 99.1 F 97 20 123/68 91 L Weight Weight 60.101 kg I&O: 03/08/18 03/09/18 03/10/18 06:59 06:59 06:59 Intake Total 1440 1320 Balance 1440 1320 Result Diagrams: 03/06/18 05:02 03/06/18 05:02 <Randa Hudson - Last Filed: 03/09/18 19:28> Phys Exam - Physical Examination Constitutional: NAD HEENT: PERRLA, moist MMs Respiratory: no wheezing, clear to auscultation bilateral Cardiovascular: RRR, no significant murmur Gastrointestinal: soft, non-tender Musculoskeletal: no edema, pulses present Neurological: non-focal, normal sensation Psychiatric: normal affect, A&O x 3 Skin: no rash <Chitra Jarvis - Last Filed: 03/09/18 11:22> Dx/Plan (1) Exudative pleural effusion Code(s): J90 - PLEURAL EFFUSION, NOT ELSEWHERE CLASSIFIED Status: Acute (2) Pleural effusion, left Code(s): J90 - PLEURAL EFFUSION, NOT ELSEWHERE CLASSIFIED Status: Acute (3) HLD (hyperlipidemia) Code(s): E78.5 - HYPERLIPIDEMIA, UNSPECIFIED Status: Chronic (4) HTN (hypertension) Code(s): I10 - ESSENTIAL (PRIMARY) HYPERTENSION Status: Chronic (5) Type 2 diabetes mellitus Status: Chronic (6) Acute respiratory failure with hypoxia Code(s): J96.01 - ACUTE RESPIRATORY FAILURE WITH HYPOXIA Status: Resolved - Plan Plan: Active Tuberculosis- -Quanterferon gold positive -Will consult Dr. Jean Baptiste for assistance with management -Will consult CM to assist with support as family was distressed this am after the news Large Left Pleural Effusion -thoracentesis performed 03/04 with 860cc of fluid removed -prelim studies show lymphocytic exudative fluid with additional cultures and flow cytometry pending -pt is [place] of [place] and endorses unintentional weight loss along with night sweats. ddx concerning for TB or malignancy. -quant gold positive -flow cytometry reflex ordered by pathology, awaiting results -pulmonology consulted, recommendations greatly appreciated; pulm considering pleural biopsy. -autoimmune studies negative DM2 - Holding home metformin - SSI, Accuchecks ACHS HTN - Continue home medication regimen once med reconciliation complete - Continue to monitor - PRN labetalol IV HLD - Continue home statin Depression - Cont to monitor <Chitra Jarvis - Last Filed: 03/09/18 11:22> Attending Addendum - Attending Addendum Date/Time: 03/09/181927 I personally evaluated the patient and discussed the management with Dr. Jarvis. I agree with the History, Examination, Assessment and Plan documented above with any addition or exceptions noted below. Quantiferon Gold positive. Pt notified of results. Consulting Dr. Jean Baptiste to help with treatment plan. <Randa Hudson - Last Filed: 03/09/18 19:28>
--- NOTE | 2018-03-09 16:40 | PDOC.EVN ---
Event Note - Event Note Event Note: Pt's marry henriquez came back positive. Dr. Jean Baptiste consulted. We will follow- up with his recommendations regarding treatment.
[2018-03-09] MEDS: metFORMIN 500 MG TAB PO SCH (17:04)
--- NOTE | 2018-03-09 18:48 | PRG ---
DATE OF SERVICE: 03/09/2018 SERVICE: Pulmonary Medicine. INTERVAL HISTORY: The patient is doing fine from cardiovascular and respiratory standpoint. She is breathing comfortably. She denies any chest pain, nausea, or vomiting. PHYSICAL EXAMINATION: VITAL SIGNS: Afebrile, pulse 93, blood pressure 119/73, respirations 20, saturation 91% on 2 liters nasal cannula. GENERAL: The patient is awake and alert, in no apparent distress. LUNGS: Decent air entry on the right. There is decreased air entry on the left. No prolonged expir atory phase, wheezing or crackles are appreciated. HEART: Normal rate, regular. ABDOMEN: Soft, nontender, nondistended. Bowel sounds are positive. MUSCULOSKELETAL: No cyanosis or clubbing. No pitting in the bilateral lower extremities. NEUROLOGIC: Grossly nonfocal. LABORATORY DATA: Flow cytometry was negative for malignancy. QuantiFERON Gold was positive. ADA is still pending. All culture results are negative to date. ASSESSMENT: 1. Acute hypoxic respiratory failure. 2. Pleural effusion, lymphocytic exudate. 3. Abnormal QuantiFERON Gold. DISCUSSION AND PLAN: Tuberculosis is the most likely thing here. Agree with ID consultation. If th e ADA is significantly abnormal, I would treat this like active tuberculosis. She should not be infe ctious, however, because she does not have any infiltrates in the lung and denies having a significan t cough. If the ADA is not elevated, we can consider a pleural biopsy. Pulmonary Critical Care will continue to follow along for the time being.
[2018-03-09] MEDS: Melatonin 3 MG TAB PO PRN (22:06)
[2018-03-09] MEDS: Atorvastatin Calcium 10 MG TAB PO SCH (22:07)
--- NOTE | 2018-03-10 00:11 | CON ---
DATE OF CONSULTATION: 03/09/2018 REASON FOR CONSULTATION: Pleural effusion. HISTORY OF PRESENT ILLNESS: A 68-year-old patient, first admission to [facility], who has a history of hyperlipidemia and type 2 diabetes mellitus as well as hypertension and has noticed 3-4 month history of cough, general malaise, night sweats and fever, which she did not measure, associat ed with a 20-pound weight loss. She then had a near syncopal event and was brought to the emergency room. Initial findings included a BP 180/90, pulse 102, respiratory rate 22, temperature 98.2 and O2 sat 92%. She appeared nontoxic and there was evidence of wheezing in the lung exam. Heart exam was described as normal. The patient had a large left-sided pleural effusion identified on chest CT. T he patient was started on broad spectrum antimicrobial coverage. Pulmonary consultation was obtained . The patient had a pleural fluid sample submitted, which showed an exudative pleural effusion with a lymphocyte predominance. Pathology showed a dense lymphoid infiltrate. The flow cytometry did not show neoplastic component. Currently, Ms. Caldwell is feeling stable. She is still with the symptoms that had been present in the past few weeks. No headaches, no visual symptoms, sore throat, odynopha fredy, or dysphagia, no back pain, no chest pain, no abdominal pain or diarrhea. No genitourinary symp toms, no joint symptoms. No skin disorder. PAST MEDICAL HISTORY: Type 2 diabetes, hypertension, hyperlipidemia. She has a history of exposure to tuberculosis in her home country of [place] many years ago. ALLERGIES: Negative. CURRENT MEDICATIONS: Lipitor, Tylenol, dextrose, Lovenox, Drisdol, glucagon, insulin, Normodyne, ruthie atonin, Glucophage, sodium chloride. Ceftriaxone has been discontinued. FAMILY HISTORY: Is not remarkable and back in [place], she had some relatives that had tuberculosis in the past. PHYSICAL EXAMINATION: VITAL SIGNS: T-max 99.1, blood pressure 130/70, pulse 91, respirations 16, O2 sat 91% on 2 liters na chelly cannula. GENERAL: Appears in no distress. SKIN: Normal. No lymphadenopathy. HEENT: Ocular movements are conjugate. Oral cavity with no remarkable findings. NECK: Supple, no jugular distention or carotid bruits. LUNGS: With markedly diminished breath sounds in the left hemithorax. No wheezing. HEART: S1, S2, regular rate. ABDOMEN: Soft, not distended or tender. No ascites. No bladder distention. EXTREMITIES: Moves all extremities equally. NEUROLOGIC: Cognitive function appears to be intact. LABORATORY DATA: White cell count 6.2, hemoglobin 12.7, MCV 88, platelets 289,000 with a normal diff erential except for monocytosis. INR 1.1. Chemistry with a sodium of 135, creatinine 0.74, bilirubi n 0.3, AST 20, ALT 19. Albumin 3.9, globulin 4.5. Urinalysis fairly normal except for some blood in the urine. Pleural fluid with 3600 WBCs with 85% lymphocytes, and glucose 128, protein 6.1. Pleura l LDH 259. QuantiFERON was positive. Legionella haemophilus and strep pneumo negative. HIV has not been done. ASSESSMENT: Immigrant from [place] with a pleural effusion, which is an exudative fluid with lymphocytic pleocytosis. There is associated with a positive QuantiFERON. The epidemiological and clinical features are suggestive of pulmonary tuberculosis with pleural manifestation. Those cases a re usually secondary to early infection with dissemination to the pleural cavity from a subpleural ar ea of proliferation. Diagnosis will depend usually on identification of the organism from either ple ural tissue or from indirect tests, such as adenosine deaminase and gamma interferon assays. The per formance of a PCR and pleural fluid is less optimal than one would expect, although this specificity is high, the sensitivity is not better than 60% to 70%. Some cases one can see granulomas in the ple ural fluid which would be fairly diagnostic of pulmonary tuberculosis. It looks like pleural biopsie s is being considered, then it may give us the diagnostic information in a patient like her from a co untry of high prevalence of tuberculosis with the above clinical and laboratory findings, I would pro bably recommend a treatment if the adenosine deaminase was elevated. The treatment would be the same as for pulmonary tuberculosis with a 4-drug regimen for the first 2 months and then 2-drug regimen f or another 4 months to complete the treatment course with follow up chest x-ray. Other possibilities such as malignancy, autoimmune syndrome are much less likely.
--- NOTE | 2018-03-10 06:57 | PDOC.FM ---
- Subjective Subjective: No complaints this am. Denies cough, shortness of breath. VSS. SR with some ST overnight to 100s - Objective MAR Reviewed: Yes Vital Signs & Weight: Vital Signs (12 hours) Temp Pulse Resp BP Pulse Ox 03/10/18 04:00 98.5 F 90 18 155/81 H 94 L 03/09/18 20:00 98.6 F 92 18 92 L 03/09/18 19:42 98.6 F 92 18 150/82 H 92 L Weight Weight 60.101 kg I&O: 03/08/18 03/09/18 03/10/18 06:59 06:59 06:59 Intake Total 1440 1320 1080 Balance 1440 1320 1080 Result Diagrams: 03/10/18 07:17 03/10/18 07:17 <Chitra Jarvis - Last Filed: 03/10/18 14:20> - Objective Vital Signs & Weight: Vital Signs (12 hours) Temp Pulse Resp BP Pulse Ox 03/10/18 08:00 98.1 F 91 18 173/85 H 93 L 03/10/18 04:00 98.5 F 90 18 155/81 H 94 L Weight Weight 60.101 kg I&O: 03/09/18 03/10/18 03/11/18 06:59 06:59 06:59 Intake Total 1320 1080 360 Balance 1320 1080 360 Result Diagrams: 03/10/18 07:17 03/10/18 07:17 <Randa Hudson - Last Filed: 03/10/18 14:46> Phys Exam - Physical Examination Constitutional: NAD HEENT: PERRLA, moist MMs Neck: no nodes, no JVD Respiratory: no wheezing, no rales, no rhonchi, clear to auscultation bilateral Cardiovascular: RRR, no significant murmur Gastrointestinal: soft, non-tender, no distention Musculoskeletal: no edema, pulses present Neurological: non-focal, normal sensation Psychiatric: normal affect, A&O x 3 Skin: no rash, cap refill <2 seconds <Chitra Jarvis - Last Filed: 03/10/18 14:20> Dx/Plan (1) Exudative pleural effusion Code(s): J90 - PLEURAL EFFUSION, NOT ELSEWHERE CLASSIFIED Status: Acute (2) Pleural effusion, left Code(s): J90 - PLEURAL EFFUSION, NOT ELSEWHERE CLASSIFIED Status: Acute (3) HLD (hyperlipidemia) Code(s): E78.5 - HYPERLIPIDEMIA, UNSPECIFIED Status: Chronic (4) HTN (hypertension) Code(s): I10 - ESSENTIAL (PRIMARY) HYPERTENSION Status: Chronic (5) Type 2 diabetes mellitus Status: Chronic (6) Acute respiratory failure with hypoxia Code(s): J96.01 - ACUTE RESPIRATORY FAILURE WITH HYPOXIA Status: Resolved - Plan Plan: Tuberculosis- -Unclear if infectious at this time. Pending results of ADA -Quanterferon gold positive -Dr. Jean Baptiste consulted; appreciate recs -Will consult CM to assist with support as family was distressed this am after the news Large Left Pleural Effusion -thoracentesis performed 03/04 with 860cc of fluid removed -prelim studies show lymphocytic exudative fluid with additional cultures and flow cytometry not reflective of malignancy -pt is [place] of [place] and endorses unintentional weight loss along with night sweats. ddx concerning for TB or malignancy. -quant gold positive -AMA pending -pulmonology consulted, recommendations greatly appreciated; pulm considering pleural biopsy if AMA negative -autoimmune studies negative DM2 - Holding home metformin - SSI, Accuchecks ACHS HTN - Continue home medication regimen once med reconciliation complete - Continue to monitor - PRN labetalol IV HLD - Continue home statin Depression - Cont to monitor <Chitra Jarvis - Last Filed: 03/10/18 14:20> Attending Addendum - Attending Addendum Date/Time: 03/10/18 1645 I personally evaluated the patient and discussed the management with Dr. Jarvis. I agree with the History, Examination, Assessment and Plan documented above with any addition or exceptions noted below. The patient remains in negative pressure room. Waiting on ADA to determine if pt needs treatment for TB. Appreciate recs from Dr. Jean Baptiste. <Randa Hudson - Last Filed: 03/10/18 14:46>
[2018-03-10 07:58] LABS: Anion Gap 12 mmol/L (10-20); BUN (Urea Nitrogen) 20 mg/dL (9.8-20.1); Calc. Creatinine Clearance 72 mL/min (70-130); Calcium 9.4 mg/dL (7.8-10.44); Carbon Dioxide 24 mmol/L (23-31); Chloride 105 mmol/L (98-107); Estimated GFR-MDRD 83; Glucose 122 mg/dL (80-115); Sodium 137 mmol/L (136-145)
[2018-03-10 09:01] LABS: Hemoglobin 12.9 g/dL (12.0-16.0); Mean Corpuscular HGB CONC 33.5 g/dL (32.0-36.0); Mean Corpuscular Hemoglobin 29.6 pg (27.0-31.0); Mean Corpuscular Volume 88.3 fl (81.0-99.0); Mean Platelet Volume 6.9 fL (7.4-10.4); Platelet Count 384 thou/uL (130-400); RBC Distribution Width 12.4 % (11.5-14.5); Red Blood Cell (RBC) Count 4.37 mill/uL (4.20-5.40); White Blood Cell (WBC) Count 4.4 thou/uL (4.8-10.8)
[2018-03-10] MEDS: metFORMIN 500 MG TAB PO SCH ×2 (09:37→16:27)
[2018-03-10] MEDS: Enoxaparin Sodium 40 MG/0.4 ML SYRINGE SC SCH (09:37)
[2018-03-10 10:59] LABS: Band 2 % (5-11); Eosinophils 3 % (0-10); Lymphocytes 23 % (21-51); MDiff Complete? YES; Monocytes 15 % (0-10); Neutrophil 51 % (42-75); PLT Morphology Comment Appears Adequate; RBC Morphology Normal; Reactive Lymphocytes 6 % (0-10)
--- NOTE | 2018-03-10 16:03 | PDOC.EVN ---
Event Note - Event Note Event Note: Adenosine Deaminase pleural fluid was wnl ( 2.7 with a range of 0.0-9.4). Will discuss results with specialists on case in regard to further management.
[2018-03-10] MEDS: Acetaminophen 325 MG TAB PO PRN (19:32)
[2018-03-10] MEDS: Ondansetron ODT 4 MG TAB PO PRN (19:33)
[2018-03-10] MEDS: Atorvastatin Calcium 10 MG TAB PO SCH (21:27)
[2018-03-10] MEDS: Melatonin 3 MG TAB PO PRN (21:27)
[2018-03-11 04:45] LABS: Band 1 % (5-11); Eosinophils 1 % (0-10); Lymphocytes 28 % (21-51); MDiff Complete? YES; Mean Corpuscular HGB CONC 33.7 g/dL (32.0-36.0); Mean Corpuscular Hemoglobin 29.5 pg (27.0-31.0); Mean Corpuscular Volume 87.5 fl (81.0-99.0); Mean Platelet Volume 7.2 fL (7.4-10.4); Monocytes 22 % (0-10); Neutrophil 47 % (42-75); PLT Morphology Comment Appears Adequate; Platelet Count 366 thou/uL (130-400); RBC Distribution Width 12.3 % (11.5-14.5); Red Blood Cell (RBC) Count 4.41 mill/uL (4.20-5.40); White Blood Cell (WBC) Count 4.3 thou/uL (4.8-10.8)
[2018-03-11 04:48] LABS: Anion Gap 14 mmol/L (10-20); BUN (Urea Nitrogen) 21 mg/dL (9.8-20.1); Calc. Creatinine Clearance 67 mL/min (70-130); Calcium 9.8 mg/dL (7.8-10.44); Carbon Dioxide 23 mmol/L (23-31); Chloride 104 mmol/L (98-107); Estimated GFR-MDRD 77; Glucose 151 mg/dL (80-115); Potassium 3.8 mmol/L (3.5-5.1); Sodium 137 mmol/L (136-145)
[2018-03-11 05:09] LABS: HIV (1/2) Antibody/Antigen Non-Reactive (NonReactive); HIV 1/2 INDEX 0.07 S/CO (<1.00)
[2018-03-11] MEDS: metFORMIN 500 MG TAB PO SCH ×2 (07:40→17:26)
[2018-03-11] MEDS: Ergocalciferol 1.25 MG(50,000 UNITS) CAP PO SCH (09:11)
[2018-03-11] MEDS: Enoxaparin Sodium 40 MG/0.4 ML SYRINGE SC SCH (09:11)
[2018-03-11] MEDS: Acetaminophen 325 MG TAB PO PRN (09:11)
[2018-03-11] MEDS: Ondansetron ODT 4 MG TAB PO PRN (09:19)
--- NOTE | 2018-03-11 12:03 | PDOC.FM ---
- Subjective Subjective: No acute events overnight. Denies shortness of breath or cough. - Objective MAR Reviewed: Yes Vital Signs & Weight: Vital Signs (12 hours) Temp Pulse Resp BP BP Pulse Ox 03/11/18 11:47 98.0 F 62 18 151/72 H 94 L 03/11/18 08:50 98.4 F 86 16 159/80 H 96 03/11/18 04:00 99.4 F 100 20 125/67 93 L Weight Weight 60.101 kg I&O: 03/10/18 03/11/18 03/12/18 06:59 06:59 06:59 Intake Total 1080 840 Balance 1080 840 Result Diagrams: 03/11/18 03:49 03/11/18 03:49 <Chitra Jarvis - Last Filed: 03/11/18 12:01> - Objective Vital Signs & Weight: Vital Signs (12 hours) Temp Pulse Resp BP Pulse Ox 03/11/18 16:50 98.5 F 105 H 19 130/60 95 03/11/18 11:47 98.0 F 62 18 151/72 H 94 L 03/11/18 08:50 98.4 F 86 16 159/80 H 96 Weight Weight 60.101 kg I&O: 03/10/18 03/11/18 03/12/18 06:59 06:59 06:59 Intake Total 1080 840 Balance 1080 840 Result Diagrams: 03/11/18 03:49 03/11/18 03:49 <Randa Hudson - Last Filed: 03/11/18 20:47> Phys Exam - Physical Examination Constitutional: NAD HEENT: PERRLA, moist MMs Neck: no nodes, no JVD Respiratory: no wheezing, no rales, clear to auscultation bilateral Cardiovascular: RRR, no significant murmur Gastrointestinal: soft, non-tender, no distention Musculoskeletal: no edema, pulses present Neurological: non-focal, normal sensation Psychiatric: normal affect, A&O x 3 Skin: no rash <Chitra Jarvis - Last Filed: 03/11/18 12:01> Dx/Plan (1) Exudative pleural effusion Code(s): J90 - PLEURAL EFFUSION, NOT ELSEWHERE CLASSIFIED Status: Acute (2) Pleural effusion, left Code(s): J90 - PLEURAL EFFUSION, NOT ELSEWHERE CLASSIFIED Status: Acute (3) HLD (hyperlipidemia) Code(s): E78.5 - HYPERLIPIDEMIA, UNSPECIFIED Status: Chronic (4) HTN (hypertension) Code(s): I10 - ESSENTIAL (PRIMARY) HYPERTENSION Status: Chronic (5) Type 2 diabetes mellitus Status: Chronic (6) Acute respiratory failure with hypoxia Code(s): J96.01 - ACUTE RESPIRATORY FAILURE WITH HYPOXIA Status: Resolved (7) Latent tuberculosis Status: Acute - Plan Plan: 1. Latent Tuberculosis- -Adenosine Deaminase wnl -Quanterferon gold positive -Dr. Jean Baptiste and Dr. Fletcher consulted; appreciate recs 2. Large Left Pleural Effusion -thoracentesis performed 03/04 with 860cc of fluid removed - lymphocytic exudative fluid and flow cytometry not reflective of malignancy -pt is [place] of [place] and endorses unintentional weight loss along with night sweats. - pulm considering pleural biopsy in outpatient since ADA is normal -autoimmune studies negative 3. DM2 - Holding home metformin - SSI, Accuchecks ACHS 4. HTN - Continue home medication regimen once med reconciliation complete - Continue to monitor - PRN labetalol IV 5. HLD - Continue home statin 6. Depression - Cont to monitor Dispo: dc today pending recs from Dr. Jean Baptiste <Chitra Jarvis - Last Filed: 03/11/18 12:01> Attending Addendum - Attending Addendum Date/Time: 03/11/182046 I personally evaluated the patient and discussed the management with Dr. Jarvis. I agree with the History, Examination, Assessment and Plan documented above with any addition or exceptions noted below. ADA is negative suggesting likely latent TB. Will f/u with recs from Dr. Jean Baptiste and Dr. Fletcher on further treatment. <Randa Hudson - Last Filed: 03/11/18 20:47>
--- NOTE | 2018-03-11 12:52 | PRG ---
DATE OF SERVICE: 03/11/2018. SERVICE: Pulmonary Medicine INTERVAL HISTORY: The patient is doing fine from a respiratory standpoint. She denies any current chest pain, nausea, vomiting, fevers or chills. She is breathing comfortably. Otherwise, there has been no interval change to her condition. PHYSICAL EXAMINATION: VITAL SIGNS: Afebrile, pulse 62, blood pressure 151/72, respirations 18, saturation 94% on 2 liters nasal cannula. GENERAL: The patient is awake, alert, in no apparent distress. LUNGS: Decent air entry on the right. There is very poor air entry on the left with dullness to percussion. No prolonged expiratory phase or wheezing is appreciated. There are no crackles. HEART: Normal rate, regular. ABDOMEN: Soft, nontender, nondistended. Bowel sounds are positive. MUSCULOSKELETAL: No cyanosis or clubbing. No pitting in the bilateral lower extremities. NEUROLOGIC: Grossly nonfocal. LABORATORY DATA: WBC 4.3, hemoglobin 13.0, platelets 366,000. INR 1.1. Basic metabolic profile is otherwise unremarkable. T-spot is positive. BECKY was quite low at 2.7, which is well within the normal range. ASSESSMENT: 1. Acute hypoxic respiratory failure. 2. Pleural effusion, lymphocytic exudate. 3. Abnormal Quantiferon Gold with normal ADA of pleural fluid. DISCUSSION AND PLAN: We still have a touch of differential. There is a possibility of a false negative on the ADA. That being said, this is quite unlikely. It is typically a decent study to exclude the possibility of a tuberculous effusion. I talked to the patient about a couple of options moving forward. We could pursue a thoracotomy and/or VATS procedure with a pleural biopsy, evacuation of fluid, and possible pleurodesis. This is probably most likely to yield an answer as quickly as possible. The other option would be to empirically initiate her on some steroid therapy and follow the effusion through time to see how it evolves. Ultimately, the patient would like to know what is going on sooner than later. As such, surgical consultation will be placed. Either way, treatment for latent tuberculosis would be indicated. JOE
--- NOTE | 2018-03-11 14:01 | CON ---
DATE OF CONSULTATION: 03/11/2018 HISTORY OF PRESENT ILLNESS: She is a 68-year-old female who was admitted with a large left pleural e ffusion. She underwent thoracentesis and studies were nondiagnostic after removal of about 900 mL of fluid. She was seen in consultation by Dr. Fletcher who felt that tuberculosis might have been a pos sibility given that there was a lymphocytic exudate. Her respiratory symptoms improved after removal of the fluid; however, she is back on nasal cannula oxygen symptomatically dyspneic with exertion an d recurrence of her pleural effusion by exam. I have been asked to do a thoracoscopy with pleural bi opsies and pleurodesis. PHYSICAL EXAMINATION: Today, GENERAL: She is alert, cooperative, small statured lady, not overweight. RESPIRATORY: He has diminished breath sounds on the left lower half of her posterior hemithorax. Cele ngs are clear on the right side. ASSESSMENT AND PLAN: Discussed with ore trimmer thoracoscopy and pleurodesis and plan on doing this t omorrow.
[2018-03-11] MEDS ORDERED: Saccharomyces boulardii 250 MG CAP PO SCH (17:30)
[2018-03-11] MEDS: Atorvastatin Calcium 10 MG TAB PO SCH (21:03)
[2018-03-11] MEDS: Melatonin 3 MG TAB PO PRN (23:03)
[2018-03-12] MEDS: metFORMIN 500 MG TAB PO SCH ×2 (08:52→19:18)
[2018-03-12] MEDS: Saccharomyces boulardii 250 MG CAP PO SCH (08:56)
--- NOTE | 2018-03-12 09:31 | PDOC.FM ---
- Subjective Subjective: No acute events overnight. Denies complaints. - Objective MAR Reviewed: Yes Vital Signs & Weight: Vital Signs (12 hours) Temp Pulse Resp BP BP Pulse Ox 03/12/18 08:00 99.5 F 91 16 127/72 97 03/12/18 04:00 98.7 F 96 20 134/89 94 L Weight Weight 60.101 kg I&O: 03/11/18 03/12/18 03/13/18 06:59 06:59 06:59 Intake Total 840 240 Balance 840 240 Result Diagrams: 03/11/18 03:49 03/11/18 03:49 <Chitra Jarvis - Last Filed: 03/12/18 09:30> - Objective Vital Signs & Weight: Vital Signs (12 hours) Temp Pulse Resp BP Pulse Ox 03/12/18 08:00 99.5 F 91 16 127/72 97 Weight Admit Weight 59.511 kg Weight 60.101 kg I&O: 03/11/18 03/12/18 03/13/18 06:59 06:59 06:59 Intake Total 840 240 240 Output Total 120 Balance 840 240 120 Result Diagrams: 03/11/18 03:49 03/11/18 03:49 <Randa Hudson - Last Filed: 03/12/18 19:43> Phys Exam - Physical Examination Constitutional: NAD HEENT: PERRLA, moist MMs Respiratory: no wheezing, no rales, clear to auscultation bilateral Cardiovascular: RRR, no significant murmur Gastrointestinal: soft, non-tender, no distention, positive bowel sounds Musculoskeletal: no edema, pulses present Psychiatric: normal affect, A&O x 3 Skin: no rash, cap refill <2 seconds <Chitra Jarvis - Last Filed: 03/12/18 09:30> Dx/Plan (1) Exudative pleural effusion Code(s): J90 - PLEURAL EFFUSION, NOT ELSEWHERE CLASSIFIED Status: Acute (2) Pleural effusion, left Code(s): J90 - PLEURAL EFFUSION, NOT ELSEWHERE CLASSIFIED Status: Acute (3) HLD (hyperlipidemia) Code(s): E78.5 - HYPERLIPIDEMIA, UNSPECIFIED Status: Chronic (4) HTN (hypertension) Code(s): I10 - ESSENTIAL (PRIMARY) HYPERTENSION Status: Chronic (5) Type 2 diabetes mellitus Status: Chronic (6) Acute respiratory failure with hypoxia Code(s): J96.01 - ACUTE RESPIRATORY FAILURE WITH HYPOXIA Status: Resolved (7) Latent tuberculosis Status: Acute - Plan Plan: 1. Latent Tuberculosis- -Adenosine Deaminase wnl -Quanterferon gold positive -Dr. Jean Baptiste and Dr. Fletcher consulted; appreciate recs 2. Large Left Pleural Effusion -thoracentesis performed 03/04 with 860cc of fluid removed - lymphocytic exudative fluid and flow cytometry not reflective of malignancy -pt [place] and endorses unintentional weight loss along with night sweats. - pleural biopsyto be performed by cv surg today. -autoimmune studies negative 3. DM2 - Holding home metformin - SSI, Accuchecks ACHS 4. HTN - Continue home medication regimen once med reconciliation complete - Continue to monitor - PRN labetalol IV 5. HLD - Continue home statin 6. Depression - Cont to monitor Dispo: dc today pending recs from Dr. Jean Baptiste <Chitra Jarvis - Last Filed: 03/12/18 09:30> Attending Addendum - Attending Addendum Date/Time: 03/12/181942 I personally evaluated the patient and discussed the management with Dr. Jarvis. I agree with the History, Examination, Assessment and Plan documented above with any addition or exceptions noted below. The patient will be going for thoracotomy today. Otherwise, remains in negative pressure room. Will await biopsy results from surgery. <Randa Hudson - Last Filed: 03/12/18 19:43>
[2018-03-12] MEDS ORDERED: Fentanyl 250 MCG/5 ML VIAL ONE (10:57)
[2018-03-12 12:43] VITALS: BMI 23.4
[2018-03-12] MEDS ORDERED: Promethazine HCl 25 MG/ML VIAL SLOW IVP PRN (13:48)
[2018-03-12] MEDS ORDERED: Promethazine HCl 25 MG/ML VIAL IM PRN (13:48)
[2018-03-12] MEDS ORDERED: Ondansetron HCl/PF 4 MG/2 ML Vial IVP PRN (13:48)
[2018-03-12] MEDS ORDERED: Fentanyl 100 MCG/2 ML VIAL ONE (13:52)
--- NOTE | 2018-03-12 13:52 | OP ---
DATE OF PROCEDURE: 03/12/2018 PREOPERATIVE DIAGNOSIS: Recurrent left effusion. POSTOPERATIVE DIAGNOSIS: Recurrent left effusion. PROCEDURE: Left thoracoscopy with pleural and lung biopsy. SURGEON: Homar Stevenson M.D. ANESTHESIA: General. ESTIMATED BLOOD LOSS: Less than 50. PROCEDURE IN DETAIL: After adequate double lumen endotracheal anesthesia had been obtained, the bria ent was placed in the right lateral decubitus position, prepped and draped. The scope was inserted u sing a 5 trocar after penetrating the pleura with a hemostat. Visualization of the lung revealed patito ck lung in multiple areas. It had a somewhat unusual appearance. There were some filmy and some fix ed adhesions near the apex of the chest. Two separate sites were then chosen for additional access a nd after this had been done, multiple pleural biopsies were obtained. After this had been accomplish ed, a green load 45 mm stapler was then used to sample a section of the lung. Following this, the ar ea was thoroughly irrigated and abrasive pad used to abrade the parietal pleura. Following this, a # 28 chest tube was placed through a separate incision. Wounds were closed and the patient is to be ta dale to the recovery room.
[2018-03-12] MEDS ORDERED: ePHEDrine/0.9% NaCl/PF SYRINGE 50 mg/10 ml ONE (15:08)
[2018-03-12] MEDS ORDERED: PROPOFOL 200 MG/20 ML VIAL ONE (15:08)
[2018-03-12] MEDS ORDERED: PHENYLEPHRINE-NS 100 MCG/ML 10 ML SYRINGE ONE (15:08)
[2018-03-12] MEDS ORDERED: Lidocaine 1% PF 5 ML VIAL ONE (15:08)
[2018-03-12] MEDS ORDERED: Glycopyrrolate 0.2 MG/ML 5 ML SYRINGE ONE (15:08)
[2018-03-12] MEDS: Fentanyl 100 MCG/2 ML VIAL SLOW IVP PRN ×2 (15:44→22:32)
--- NOTE | 2018-03-12 15:47 | RAD ---
CHEST ONE VIEW: 03/12/18 HISTORY: 68-year-old female status post chest tube placement for left pleural effusion. COMPARISON: 03/04/18. FINDINGS: Left chest tube is in place with marked improvement in the previously noted left pleural effusion. Pa tchy interstitial and alveolar opacity changes in the left lower lobe evidence for minimal pneumonia and/or atelectasis. Patchy horizontal linear parenchymal changes in the right mid lung zone evidence for subsegmental atelectasis. No significant residual pneumothorax although the left apex is somewhat obscured by overlying tubing. IMPRESSION: Left chest tube placement with marked improvement in the left sided pleural effusion. Persistent pare nchymal changes in the left lower lobe as well as some horizontal linear and parenchymal changes in t he right mid lung zone. Continued short term followup for complete clearing. POS: C
--- NOTE | 2018-03-12 18:26 | PRG ---
DATE OF SERVICE: 03/12/2018 SERVICE: Pulmonary Medicine. INTERVAL HISTORY: The patient is doing fine from a respiratory standpoint. She just had her video-a ssisted thoracotomy. She is recovering in a room from that. She denies any current nausea or vomiti ng. She has appropriate chest discomfort. Otherwise, there has been no interval change to her condi tion. During the operation, multiple things were identified. PHYSICAL EXAMINATION: VITAL SIGNS: Afebrile with T-max of 99.5, pulse 91, blood pressure 127/72, respirations 16, saturati on 97% on 2 liters nasal cannula. GENERAL: The patient is awake, alert, no apparent distress. LUNGS: Excellent air entry. There is not any prolonged expiratory phase. HEART: Normal rate and regular. ABDOMEN: Soft, nontender, and nondistended. Bowel sounds are positive. MUSCULOSKELETAL: No cyanosis or clubbing. There is no pitting in the bilateral lower extremities. NEUROLOGIC: Grossly nonfocal. LABORATORY DATA: WBC 4.3, hemoglobin 13.0, and platelets 366,000. Blood sugars ranged from 103-165. QuantiFERON Gold is abnormal. Flow cytometry was negative for any malignancies. ADA was negative. Body fluid culture is negative to date. AFB smear and culture are currently pending once again. P athology is currently pending. ASSESSMENT: 1. Acute hypoxic respiratory failure. 2. Pleural effusion, lymphocytic exudate. 3. Abnormal QuantiFERON Gold with normal ADA of pleural fluid. 4. Abnormal findings on thoracotomy including multiple white plaque studding, both the visceral and parietal pleura surfaces. She also has hyperpigmented/black lung. DISCUSSION AND PLAN: We will wait for the pathology results to come back. She had a biopsy of both the pleural surface, and of the lung itself. Hopefully, this will give us an idea as to what we are dealing with. Pulmonary or Critical Care will continue to follow along with the results of the study .
[2018-03-12] MEDS: Ketorolac Tromethamine 30 MG/ML VIAL IVP SCH (19:17)
[2018-03-12] MEDS: Atorvastatin Calcium 10 MG TAB PO SCH (21:02)
[2018-03-12] MEDS: Melatonin 3 MG TAB PO PRN (22:32)
[2018-03-13] MEDS: Ketorolac Tromethamine 30 MG/ML VIAL IVP SCH ×4 (00:08→17:25)
--- NOTE | 2018-03-13 06:52 | PDOC.FM ---
- Subjective Subjective: S/p lung biopsy with chest tube in place. Complains of soreness from surgery yesterday. - Objective MAR Reviewed: Yes Vital Signs & Weight: Vital Signs (12 hours) Temp Pulse Resp BP BP Pulse Ox 03/13/18 04:00 98 F 96 18 177/83 H 96 03/12/18 20:00 98.9 F 93 18 138/76 94 L Weight Admit Weight 59.511 kg Weight 60.101 kg I&O: 03/11/18 03/12/18 03/13/18 06:59 06:59 06:59 Intake Total 840 240 900 Output Total 620 Balance 840 240 280 Result Diagrams: 03/11/18 03:49 03/11/18 03:49 <Chitra Jarvis - Last Filed: 03/13/18 11:48> - Objective Vital Signs & Weight: Vital Signs (12 hours) Temp Pulse Resp BP Pulse Ox 03/13/18 11:52 99.8 F H 92 20 180/88 H 96 03/13/18 08:50 98.5 F 89 18 167/81 H 96 03/13/18 04:00 98 F 96 18 177/83 H 96 Weight Admit Weight 59.511 kg Weight 60.101 kg I&O: 03/12/18 03/13/18 03/14/18 06:59 06:59 06:59 Intake Total 240 900 Output Total 620 Balance 240 280 Result Diagrams: 03/11/18 03:49 03/11/18 03:49 <Randa Hudson - Last Filed: 03/13/18 12:49> Phys Exam - Physical Examination Constitutional: NAD HEENT: PERRLA, moist MMs Respiratory: no wheezing, no rales, clear to auscultation bilateral Cardiovascular: RRR, no significant murmur Gastrointestinal: soft, non-tender Musculoskeletal: no edema, pulses present Neurological: non-focal, normal sensation Psychiatric: normal affect, A&O x 3 Skin: no rash <Chitra Jarvis - Last Filed: 03/13/18 11:48> Dx/Plan (1) Exudative pleural effusion Code(s): J90 - PLEURAL EFFUSION, NOT ELSEWHERE CLASSIFIED Status: Acute (2) Pleural effusion, left Code(s): J90 - PLEURAL EFFUSION, NOT ELSEWHERE CLASSIFIED Status: Acute (3) HLD (hyperlipidemia) Code(s): E78.5 - HYPERLIPIDEMIA, UNSPECIFIED Status: Chronic (4) HTN (hypertension) Code(s): I10 - ESSENTIAL (PRIMARY) HYPERTENSION Status: Chronic (5) Type 2 diabetes mellitus Status: Chronic (6) Acute respiratory failure with hypoxia Code(s): J96.01 - ACUTE RESPIRATORY FAILURE WITH HYPOXIA Status: Resolved (7) Tuberculosis Code(s): A15.9 - RESPIRATORY TUBERCULOSIS UNSPECIFIED Status: Acute - Plan Plan: 1. Tuberculosis -Pending pleural biopsy, if granulomas present, will treat as active TB -Adenosine Deaminase wnl -Quanterferon gold positive -Dr. Jean Baptiste and Dr. Fletcher consulted; appreciate recs 2. Large Left Pleural Effusion -thoracentesis performed 03/04 with 860cc of fluid removed - lymphocytic exudative fluid and flow cytometry not reflective of malignancy - pt is [place] of [place] and endorses unintentional weight loss along with night sweats. - pleural biopsy performed yesterday, pending results - pt is having significant pain. Will order toradol and morphine prn -autoimmune studies negative 3. DM2 - restart metformin - SSI, Accuchecks ACHS 4. HTN -monitor -labetalol prn 5. HLD -atorvastatin 40mg daily Dispo: dc today pending recs from Dr. Jean Baptiste <Chitra Jarvis - Last Filed: 03/13/18 11:48> Attending Addendum - Attending Addendum Date/Time: 03/13/18 2348 I personally evaluated the patient and discussed the management with Dr. Jarvis. I agree with the History, Examination, Assessment and Plan documented above with any addition or exceptions noted below. We will adjust pain meds. Waiting on biopsy results. Adding sputum cultures for AFB. <Randa Hudson - Last Filed: 03/13/18 12:49>
[2018-03-13] MEDS: metFORMIN 500 MG TAB PO SCH ×2 (08:52→17:26)
[2018-03-13] MEDS: Saccharomyces boulardii 250 MG CAP PO SCH (08:52)
[2018-03-13] MEDS ORDERED: Morphine 4 MG/ML VIAL SLOW IVP PRN (11:47)
[2018-03-13] MEDS ORDERED: Morphine 4 MG/ML VIAL SLOW IVP SCH (12:00)
[2018-03-13] MEDS: Ondansetron ODT 4 MG TAB PO PRN (12:26)
--- NOTE | 2018-03-13 15:49 | PRG ---
DATE OF SERVICE: 03/13/2018 SERVICE: Pulmonary Medicine. INTERVAL HISTORY: The patient is doing great from a respiratory standpoint. She is breathing comfortably. She has no complaints of nausea, vomiting, fevers , or chills. She does have a thoracotomy drain in place. This is causing some discomfort in her chest, which is appropriate. PHYSICAL EXAMINATION: VITAL SIGNS: Afebrile currently with a T-max of 99.8, pulse 92, blood pressure 180/88, respirations 20, saturation 96% on 2 liters nasal cannula. GENERAL: The patient is awake, alert, in no apparent distress. LUNGS: Decent air entry on the right with no prolonged expiratory phase or wheezing. There is a rub on the left. HEART: Normal rate, regular. ABDOMEN: Soft, nontender, nondistended. Bowel sounds positive. MUSCULOSKELETAL: No cyanosis or clubbing. There is no pitting in the bilateral lower extremities. NEUROLOGIC: Grossly nonfocal. LABORATORY DATA: T-SPOT is positive. Flow cytometry was negative for malignancy. Microbiology is currently pending or unremarkable. ASSESSMENT: 1. Acute hypoxic respiratory failure. 2. Pleural effusion on the left, lymphocytic exudate, large. 3. Abnormal QuantiFERON Gold with normal fluid ADA. 4. Abnormal chest wall findings including white pleural plaque studding the visceral and parietal surfaces, and hyperpigmented/black lung. DISCUSSION AND PLAN: We are awaiting pathology results on both the lung tissue and the pleural tissue. We will follow up the culture results as well. Pulmonary Critical Care will continue to follow along, but as soon as the chest tube comes out, she will likely be ready for transition home and we can follow up on the results in the outpatient setting. I will initiate a brief course of steroids to see if this helps with some of the inflammatory changes in her chest wall. JOE
[2018-03-13] MEDS ORDERED: Amlodipine 10 MG TAB PO SCH (18:30)
[2018-03-13] MEDS: HYDROcodone/Acetaminophen 5/325 mg Tablet PO PRN (20:51)
[2018-03-13] MEDS: Atorvastatin Calcium 10 MG TAB PO SCH (20:51)
[2018-03-13] MEDS: Melatonin 3 MG TAB PO PRN (20:52)
[2018-03-14] MEDS: Ketorolac Tromethamine 30 MG/ML VIAL IVP SCH ×4 (00:18→17:36)
--- NOTE | 2018-03-14 07:41 | PDOC.FM ---
- Subjective Subjective: Pt feels well today. She states she has some pain with ambulation at site of biopsy. No other complaints. - Objective MAR Reviewed: Yes Vital Signs & Weight: Vital Signs (12 hours) Temp Pulse Resp BP BP Pulse Ox 03/14/18 04:00 98.3 F 87 18 140/62 92 L 03/14/18 00:00 99.6 F 95 15 121/63 92 L 03/13/18 20:00 100.6 F H 101 H 18 140/75 92 L Weight Admit Weight 59.511 kg Weight 60.101 kg I&O: 03/13/18 03/14/18 03/15/18 06:59 06:59 06:59 Intake Total 900 1430 Output Total 620 50 Balance 280 1380 Result Diagrams: 03/11/18 03:49 03/11/18 03:49 <Elie Robbins - Last Filed: 03/14/18 07:39> - Objective Vital Signs & Weight: Vital Signs (12 hours) Temp Pulse Resp BP Pulse Ox 03/14/18 08:55 97.9 F 87 18 159/85 H 94 L 03/14/18 04:00 98.3 F 87 18 140/62 92 L 03/14/18 00:00 99.6 F 95 15 121/63 92 L Weight Admit Weight 59.511 kg Weight 60.101 kg I&O: 03/13/18 03/14/18 03/15/18 06:59 06:59 06:59 Intake Total 900 1430 Output Total 620 50 Balance 280 1380 Result Diagrams: 03/11/18 03:49 03/11/18 03:49 <Randa Hudson - Last Filed: 03/14/18 09:56> Phys Exam - Physical Examination Constitutional: NAD HEENT: PERRLA, moist MMs Neck: no JVD, full ROM Respiratory: no wheezing rales at bases b/l worse on L Cardiovascular: RRR, no significant murmur Gastrointestinal: soft, non-tender, no distention, positive bowel sounds Musculoskeletal: no edema Neurological: non-focal, normal sensation, moves all 4 limbs Psychiatric: normal affect, A&O x 3 Skin: no rash <Elie Robbins - Last Filed: 03/14/18 07:39> Dx/Plan (1) Exudative pleural effusion Code(s): J90 - PLEURAL EFFUSION, NOT ELSEWHERE CLASSIFIED Status: Acute (2) Pleural effusion, left Code(s): J90 - PLEURAL EFFUSION, NOT ELSEWHERE CLASSIFIED Status: Acute (3) Tuberculosis Code(s): A15.9 - RESPIRATORY TUBERCULOSIS UNSPECIFIED Status: Suspected (4) HLD (hyperlipidemia) Code(s): E78.5 - HYPERLIPIDEMIA, UNSPECIFIED Status: Chronic (5) HTN (hypertension) Code(s): I10 - ESSENTIAL (PRIMARY) HYPERTENSION Status: Chronic (6) Type 2 diabetes mellitus Status: Chronic (7) Acute respiratory failure with hypoxia Code(s): J96.01 - ACUTE RESPIRATORY FAILURE WITH HYPOXIA Status: Resolved - Plan Plan: 1. Tuberculosis -Biopsy shows caseating granulomas w/negative smear for AFB. Cx pending. Appreciate ID recommendation for further management and indications for starting abx -Adenosine Deaminase wnl -Quanterferon gold positive -Dr. Jean Baptiste and Dr. Fletcher consulted; appreciate recs 2. Large Left Pleural Effusion - thoracentesis performed 03/04 with 860cc of fluid removed - lymphocytic exudative fluid and flow cytometry not reflective of malignancy - pt is controlled on current management -autoimmune studies negative 3. DM2 - restart metformin - SSI, Accuchecks ACHS 4. HTN -monitor -labetalol prn 5. HLD -atorvastatin 40mg daily Dispo: dc pending biopsy results and removal of chest tube <Elie Robbins - Last Filed: 03/14/18 07:39> Attending Addendum - Attending Addendum Date/Time: 03/14/18 0955 I personally evaluated the patient and discussed the management with Dr. Robbins. I agree with the History, Examination, Assessment and Plan documented above with any addition or exceptions noted below. The patient's pain is better controlled this morning. Path showed caseating granulomas but AFB are currently negative. Will f/u with recs from Dr. Jean Baptiste. <Randa Hudson - Last Filed: 03/14/18 09:56>
[2018-03-14] MEDS: Ondansetron ODT 4 MG TAB PO PRN (09:04)
[2018-03-14] MEDS: metFORMIN 500 MG TAB PO SCH ×2 (09:05→17:37)
[2018-03-14] MEDS: Amlodipine 10 MG TAB PO SCH (09:05)
[2018-03-14] MEDS: HYDROcodone/Acetaminophen 5/325 mg Tablet PO PRN (09:05)
[2018-03-14] MEDS: Saccharomyces boulardii 250 MG CAP PO SCH (09:05)
[2018-03-14] MEDS ORDERED: Pyrazinamide 500 MG TAB PO SCH (13:00)
[2018-03-14] MEDS ORDERED: Rifampin 300 MG CAP PO SCH (13:00)
[2018-03-14] MEDS ORDERED: Ethambutol HCl 400 MG TAB PO SCH (13:00)
[2018-03-14] MEDS ORDERED: Isoniazid 100 MG TAB PO SCH (13:00)
--- NOTE | 2018-03-14 14:03 | PRG ---
DATE OF SERVICE: 03/14/2018 SUBJECTIVE: Pleural biopsy shows caseating granulomas, her fluid mainly lymphocytic. OBJECTIVE: VITAL SIGNS: She remains afebrile, sats are 94, temperature 97, blood pressure 159/85. CHEST: Decreased breath sounds, no wheezing. CARDIAC: Normal S1 and S2. No gallops. ABDOMEN: Soft. No masses. 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 PLAN: Probably we will initiate a 4-drug TB medication therapy.
[2018-03-14] MEDS: Atorvastatin Calcium 10 MG TAB PO SCH (20:25)
[2018-03-14] MEDS: Acetaminophen 325 MG TAB PO PRN (22:51)
[2018-03-14] MEDS: Melatonin 3 MG TAB PO PRN (22:51)
[2018-03-15] MEDS: Ketorolac Tromethamine 30 MG/ML VIAL IVP SCH ×4 (00:18→18:10)
--- NOTE | 2018-03-15 07:32 | PDOC.FM ---
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 She was started of quadruple therapy yesterday. There were no acute events over night. She has no specific complaints today. She denies any new symptoms. Chest tube dc'd yesterday - Objective MAR Reviewed: Yes Vital Signs & Weight: Vital Signs (12 hours) Temp Pulse Resp BP Pulse Ox 03/15/18 06:13 98.1 F 92 17 93 L 03/15/18 04:41 92 L 03/15/18 03:35 98.1 F 92 17 142/74 H 92 L 03/14/18 20:00 96.9 F L 98 18 144/76 H 93 L Weight Admit Weight 59.511 kg Weight 60.101 kg I&O: 03/14/18 03/15/18 03/16/18 06:59 06:59 06:59 Intake Total 1430 1707 Output Total 50 Balance 1380 1707 Result Diagrams: 03/11/18 03:49 03/11/18 03:49 <Elie Robbins - Last Filed: 03/15/18 07:28> - Objective Vital Signs & Weight: Vital Signs (12 hours) Temp Pulse Resp BP BP Pulse Ox 03/15/18 14:14 98 F 99 18 92 L 03/15/18 12:50 98 F 99 18 150/73 H 92 L 03/15/18 12:10 125/69 03/15/18 10:33 97.9 F 86 18 176/90 H 93 L 03/15/18 10:15 92 03/15/18 08:15 97.9 F 86 18 93 L 03/15/18 06:13 98.1 F 92 17 93 L 03/15/18 04:41 92 L 03/15/18 03:35 98.1 F 92 17 142/74 H 92 L Weight Admit Weight 59.511 kg Weight 60.101 kg I&O: 03/14/18 03/15/18 03/16/18 06:59 06:59 06:59 Intake Total 1430 1707 Output Total 50 Balance 1380 1707 Result Diagrams: 03/11/18 03:49 03/11/18 03:49 <Randa Hudson - Last Filed: 03/15/18 15:30> Phys Exam - Physical Examination Constitutional: NAD HEENT: moist MMs, sclera anicteric Neck: no JVD, full ROM Respiratory: clear to auscultation bilateral Cardiovascular: RRR, no significant murmur Gastrointestinal: soft, non-tender, no distention Musculoskeletal: no edema, pulses present Neurological: non-focal, normal sensation Psychiatric: normal affect, A&O x 3 Skin: no rash, normal turgor <Elie Robbins - Last Filed: 03/15/18 07:28> Dx/Plan (1) Exudative pleural effusion Code(s): J90 - PLEURAL EFFUSION, NOT ELSEWHERE CLASSIFIED Status: Acute (2) Pleural effusion, left Code(s): J90 - PLEURAL EFFUSION, NOT ELSEWHERE CLASSIFIED Status: Acute (3) Tuberculosis Code(s): A15.9 - RESPIRATORY TUBERCULOSIS UNSPECIFIED Status: Suspected (4) HLD (hyperlipidemia) Code(s): E78.5 - HYPERLIPIDEMIA, UNSPECIFIED Status: Chronic (5) HTN (hypertension) Code(s): I10 - ESSENTIAL (PRIMARY) HYPERTENSION Status: Chronic (6) Type 2 diabetes mellitus Status: Chronic (7) Acute respiratory failure with hypoxia Code(s): J96.01 - ACUTE RESPIRATORY FAILURE WITH HYPOXIA Status: Resolved - Plan Plan: 1. Tuberculosis -Biopsy shows caseating granulomas w/negative smear for AFB. Cx pending. Quad therapy started yesterday by Pulm while awaiting final culture results. Will reconsider treatment after cultures result. -Adenosine Deaminase wnl -Quanterferon gold positive -Dr. Jean Baptiste and Dr. Fletcher consulted; appreciate recs 2. Large Left Pleural Effusion - thoracentesis performed 03/04 with 860cc of fluid removed - lymphocytic exudative fluid and flow cytometry not reflective of malignancy 3. DM2 - continue metformin, glucose controlled - SSI, Accuchecks ACHS 4. HTN - some pressures elevated into 140s and 150s systolic -labetalol prn 5. HLD -atorvastatin 40mg daily Dispo: dc pending biopsy results and further recommendation of ID <Elie Robbins - Last Filed: 03/15/18 07:28> Attending Addendum - Attending Addendum Date/Time: 03/15/18 1035 I personally evaluated the patient and discussed the management with Dr. Robbins. I agree with the History, Examination, Assessment and Plan documented above with any addition or exceptions noted below. The patient is doing well s/p thoracotomy. She has started a 4-drug regimen for TB per Dr. Moss. Will f/u with specialists recs. Pain is controlled. <Randa uHdson - Last Filed: 03/15/18 15:30>
[2018-03-15] MEDS: Isoniazid 100 MG TAB PO SCH (10:13)
[2018-03-15] MEDS: Pyrazinamide 500 MG TAB PO SCH (10:13)
[2018-03-15] MEDS: metFORMIN 500 MG TAB PO SCH ×2 (10:14→16:01)
[2018-03-15] MEDS: Saccharomyces boulardii 250 MG CAP PO SCH (10:14)
[2018-03-15] MEDS: Ethambutol HCl 400 MG TAB PO SCH (10:14)
[2018-03-15] MEDS: pyridOXINE 50 MG (B6) TAB PO SCH (10:15)
[2018-03-15] MEDS: Amlodipine 10 MG TAB PO SCH (10:15)
[2018-03-15] MEDS: Rifampin 300 MG CAP PO SCH (10:15)
--- NOTE | 2018-03-15 12:43 | PRG ---
DATE OF SERVICE: 03/15/2018 SUBJECTIVE: No distress, no pain, no shortness of breath. OBJECTIVE: VITAL SIGNS: Sats are 92% room air, temperature 97, pulse 86, respiration rate 18, blood pressure is 176/90. CHEST: Good breath sounds bilaterally. CARDIAC: Normal S1, S2, no gallops. ABDOMEN: Soft without any masses. IMPRESSION: Status post thoracotomy with left pleural biopsy suggestive of caseating granuloma, prob ably MTB, pending cultures. She was started on 4-drug therapy. She does not appear to be contagious. She could be discharged ho sd, appropriate medication, follow up with Dr. Fletcher.
[2018-03-15] MEDS: Acetaminophen 325 MG TAB PO PRN (21:25)
[2018-03-15] MEDS: Atorvastatin Calcium 10 MG TAB PO SCH (21:25)
[2018-03-16] MEDS: Ketorolac Tromethamine 30 MG/ML VIAL IVP SCH ×4 (01:39→17:15)
[2018-03-16] MEDS: Amlodipine 10 MG TAB PO SCH (08:42)
[2018-03-16] MEDS: Isoniazid 100 MG TAB PO SCH (08:43)
[2018-03-16] MEDS: metFORMIN 500 MG TAB PO SCH ×2 (08:43→17:15)
[2018-03-16] MEDS: pyridOXINE 50 MG (B6) TAB PO SCH (08:43)
[2018-03-16] MEDS: Saccharomyces boulardii 250 MG CAP PO SCH (08:43)
[2018-03-16] MEDS: Rifampin 300 MG CAP PO SCH (09:31)
[2018-03-16] MEDS: Ethambutol HCl 400 MG TAB PO SCH (09:31)
[2018-03-16] MEDS: Pyrazinamide 500 MG TAB PO SCH (09:32)
--- NOTE | 2018-03-16 11:53 | PDOC.FM ---
- Subjective Subjective: No acute events overnight. Denies shortness of breath or cough this morning. - Objective MAR Reviewed: Yes Vital Signs & Weight: Vital Signs (12 hours) Temp Pulse Resp BP BP BP Pulse Ox 03/16/18 11:42 96.6 F L 95 16 131/71 96 03/16/18 08:42 82 20 143/87 H 143/87 H 94 L 03/16/18 08:05 98.6 F 82 20 101/67 93 L 03/16/18 05:25 98.4 F 80 18 156/87 H 97 03/16/18 01:06 98.4 F 85 18 132/80 93 L Weight Admit Weight 59.511 kg Weight 60.101 kg I&O: 03/15/18 03/16/18 03/17/18 06:59 06:59 06:59 Intake Total 8820 393 Balance 0908 670 Result Diagrams: 03/11/18 03:49 03/11/18 03:49 Phys Exam - Physical Examination Constitutional: NAD HEENT: PERRLA, moist MMs Respiratory: no wheezing mild crackles bilaterally Cardiovascular: RRR, no significant murmur Gastrointestinal: soft, non-tender, no distention Musculoskeletal: no edema, pulses present Neurological: non-focal, normal sensation Psychiatric: normal affect, A&O x 3 Skin: no rash, normal turgor Dx/Plan (1) Exudative pleural effusion Code(s): J90 - PLEURAL EFFUSION, NOT ELSEWHERE CLASSIFIED Status: Acute (2) Pleural effusion, left Code(s): J90 - PLEURAL EFFUSION, NOT ELSEWHERE CLASSIFIED Status: Acute (3) HLD (hyperlipidemia) Code(s): E78.5 - HYPERLIPIDEMIA, UNSPECIFIED Status: Chronic (4) HTN (hypertension) Code(s): I10 - ESSENTIAL (PRIMARY) HYPERTENSION Status: Chronic (5) Type 2 diabetes mellitus Status: Chronic (6) Acute respiratory failure with hypoxia Code(s): J96.01 - ACUTE RESPIRATORY FAILURE WITH HYPOXIA Status: Resolved (7) Tuberculosis Code(s): A15.9 - RESPIRATORY TUBERCULOSIS UNSPECIFIED Status: Suspected - Plan Plan: 68 yo f with one mo hx of cough and night sweats, admitted for CAP, then found to have tuberculosis with a pleural biopsy showing caseating granulomas suggesting active/reactivation of tb, however it appears to be non-infectious at this time with negative sputum cultures. 1. Tuberculosis, active, non-infectious -Biopsy shows caseating granulomas w/negative smear for AFB. Cx pending. Quad therapy started 03/15 by Pulm while awaiting final culture results. -Adenosine Deaminase wnl -Quanterferon gold positive -Dr. Jean Baptiste and Dr. Fletcher consulted; appreciate recs -Health department consulted. Pt will be discharged today with close follow-up with pulmonary critical care and PCP. -Appears to be active/reactivated but non infectious d/t negative sputum cultures. -Recommend close follow-up with pulmonology, PCP, and the health department. 2. Large Left Pleural Effusion, improved - thoracentesis performed 03/04 with 860cc of fluid removed - lymphocytic exudative fluid and flow cytometry not reflective of malignancy 3. DM2 - continue metformin, glucose controlled - SSI, Accuchecks ACHS 4. HTN - some pressures elevated into 140s and 150s systolic -labetalol prn -consider starting lisinopril in outpatient setting. 5. HLD -atorvastatin 40mg daily Dispo: dc pending biopsy results and further recommendation of ID
--- NOTE | 2018-03-16 14:37 | ADD-PRG ---
DATE OF SERVICE: 03/16/2018 This is an addendum to the note of Dr. Chitra Barber. Ms. 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 We are of course awaiting the results of culture. [facility] has been contacted for her medical therapy. She will be discharged today to follow up with them. Clinically, she has improved since her thoracentesis and is in no distress.
--- NOTE | 2018-03-16 17:43 | PRG ---
DATE OF SERVICE: 03/16/2018 SUBJECTIVE: Feeling well, mild pain in the thoracoscopic site. No cough, no abdominal pain or diarr hea. No genitourinary symptoms. OBJECTIVE: VITAL SIGNS: T-max 98.6. Other vital signs are normal. GENERAL: Awake, alert, oriented. LUNGS: With diminished breath sounds right side. HEART: S1, S2, regular rate. ABDOMEN: Soft, not distended. EXTREMITIES: Moves extremities equally. 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 The patient to be discharged on 4-drug regimen with directly observed therapy under Health Department supervision. I have signed all the paperwork with Magi and will follow her up in the outpatient s etting.
[2018-03-16] MEDS: HYDROcodone/Acetaminophen 5/325 mg Tablet PO PRN (22:01)
[2018-03-16] MEDS: Atorvastatin Calcium 10 MG TAB PO SCH (22:01)
[2018-03-17] MEDS: Ketorolac Tromethamine 30 MG/ML VIAL IVP SCH ×3 (01:20→11:23)
--- NOTE | 2018-03-17 08:15 | PRG ---
DATE OF SERVICE: 03/16/2018 SERVICE: Pulmonary Medicine. INTERVAL HISTORY: The patient is doing fine from a cardiovascular and respiratory standpoint. She is breathing comfortably. The pain in the chest got much better when the tube was removed. Otherwise, there has been no interval change to her condition. PHYSICAL EXAMINATION: VITAL SIGNS: Afebrile, pulse 95, blood pressure 131/71, respirations 16, saturation 96% on room air. GENERAL: The patient is awake, alert, no apparent distress. LUNGS: Excellent air entry. There is no prolonged expiratory phase or wheezing appreciated. HEART: Normal rate, regular. ABDOMEN: Soft, nontender, nondistended. Bowel sounds are positive. MUSCULOSKELETAL: No cyanosis or clubbing. There is no pitting in the bilateral lower extremities. NEUROLOGIC: Grossly nonfocal. LABORATORY DATA: AFB concentrated smears were negative on the pleural tissue, and the lung tissue. A thoracentesis was also negative for AFB. Blood cultures are otherwise unremarkable. ASSESSMENT: 1. Acute hypoxic respiratory failure. 2. Pleural effusion on the left, lymphocytic exudate, large. 3. Tuberculosis of the pleural space. DISCUSSION AND PLAN: The patient is doing fine from a respiratory standpoint. She is on quadruple therapy. Pulmonary Critical Care will continue to follow along. We will send the sample for Mycobacterium PCR. She can be discharged home today and follow up with the Health Department. We will follow up with her in clinic. JOE
[2018-03-17] MEDS: Saccharomyces boulardii 250 MG CAP PO SCH (08:18)
[2018-03-17] MEDS: Amlodipine 10 MG TAB PO SCH (08:18)
[2018-03-17] MEDS: metFORMIN 500 MG TAB PO SCH (08:19)
[2018-03-17] MEDS: pyridOXINE 50 MG (B6) TAB PO SCH (08:19)
[2018-03-17] MEDS: HYDROcodone/Acetaminophen 5/325 mg Tablet PO PRN (08:19)
[2018-03-17] MEDS: Isoniazid 100 MG TAB PO SCH (08:20)
[2018-03-17] MEDS: Ethambutol HCl 400 MG TAB PO SCH (08:20)
[2018-03-17] MEDS: Rifampin 300 MG CAP PO SCH (09:29)
[2018-03-17 10:29] LABS: Fungus Stain Final report (.)
[2018-03-17 10:29] LABS: Fungus Stain Final report (.)
[2018-03-17] MEDS: Pyrazinamide 500 MG TAB PO SCH (11:22)
[2018-03-17 11:31] VITALS: TEMP 98.1
--- NOTE | 2018-03-17 11:35 | PDOC.FM ---
- Subjective Subjective: No acute events overnight. Pt endorses a mild cough but otherwise feels well. - Objective MAR Reviewed: Yes Vital Signs & Weight: Vital Signs (12 hours) Temp Pulse Resp BP BP Pulse Ox 03/17/18 11:25 98.1 F 100 16 171/79 H 97 03/17/18 08:18 90 150/79 H 03/17/18 08:16 98.6 F 90 18 95 03/17/18 07:03 98.6 F 90 18 150/79 H 95 Weight Admit Weight 59.511 kg Weight 60.101 kg I&O: 03/16/18 03/17/18 03/18/18 06:59 06:59 06:59 Intake Total 670 1330 Balance 670 1330 Result Diagrams: 03/11/18 03:49 03/11/18 03:49 Phys Exam - Physical Examination Constitutional: NAD HEENT: PERRLA, moist MMs Respiratory: no wheezing, no rales, no rhonchi, clear to auscultation bilateral Cardiovascular: RRR, no significant murmur, no rub Gastrointestinal: soft, non-tender, no distention Musculoskeletal: no edema, pulses present Neurological: non-focal, normal sensation Psychiatric: normal affect, A&O x 3 Skin: no rash Dx/Plan (1) Exudative pleural effusion Code(s): J90 - PLEURAL EFFUSION, NOT ELSEWHERE CLASSIFIED Status: Acute (2) Pleural effusion, left Code(s): J90 - PLEURAL EFFUSION, NOT ELSEWHERE CLASSIFIED Status: Acute (3) HLD (hyperlipidemia) Code(s): E78.5 - HYPERLIPIDEMIA, UNSPECIFIED Status: Chronic (4) HTN (hypertension) Code(s): I10 - ESSENTIAL (PRIMARY) HYPERTENSION Status: Chronic (5) Type 2 diabetes mellitus Status: Chronic (6) Acute respiratory failure with hypoxia Code(s): J96.01 - ACUTE RESPIRATORY FAILURE WITH HYPOXIA Status: Resolved (7) Tuberculosis Code(s): A15.9 - RESPIRATORY TUBERCULOSIS UNSPECIFIED Status: Suspected - Plan Plan: 68 yo f with one mo hx of cough and night sweats, admitted for CAP, then found to have tuberculosis with a pleural biopsy showing caseating granulomas suggesting active/reactivation of tb, however it appears to be non-infectious at this time with negative sputum cultures and no active cavitary lesion. 1. Tuberculosis, active, non-infectious -Biopsy shows caseating granulomas w/negative smear for AFB. Cx pending. Quad therapy started 03/15 by Pulm while awaiting final culture results. -Adenosine Deaminase wnl -Quanterferon gold positive -Dr. Jean Baptiste and Dr. Fletcher consulted; appreciate recs -Health department consulted. Pt will be discharged today with close follow-up with pulmonary critical care and PCP. -Appears to be active/reactivated but non infectious d/t negative sputum cultures. -Recommend close follow-up with pulmonology, PCP, and the health department. 2. Large Left Pleural Effusion, improved - thoracentesis performed 03/04 with 860cc of fluid removed - lymphocytic exudative fluid and flow cytometry not reflective of malignancy 3. DM2 - continue metformin, glucose controlled - SSI, Accuchecks ACHS 4. HTN - some pressures elevated into 140s and 150s systolic - labetalol prn - consider starting lisinopril in outpatient setting. 5. HLD -atorvastatin 40mg daily Dispo: dc today
[2018-03-17 12:26] VITALS: BP 150/79
--- NOTE | 2018-03-17 12:32 | ADD-PRG ---
DATE OF SERVICE: 03/17/2018 This is an addendum to the note of Dr. Chitra Barber. Ms. Caldwell received a visit yesterday from the [facility] and has been started on her 4 medicat ion regimen for pulmonary tuberculosis. She will be discharged today on this regimen and follow up w ith the Health Department.
--- NOTE | 2018-03-17 13:38 | PRG ---
DATE OF SERVICE: 03/17/2018 SERVICE: Pulmonary Medicine INTERVAL HISTORY: The patient is doing fine from a respiratory standpoint. She denies any fevers, c hills, nausea or vomiting. She is coughing a little bit. That being said, she is not generating any sputum. PHYSICAL EXAMINATION: VITAL SIGNS: Afebrile, pulse 100, blood pressure 171/79, respirations 16, saturation 97% on room air . GENERAL: The patient is awake, alert, in no apparent distress. LUNGS: Decent air entry in the right. There is slightly decreased air entry at the left base. No p rolonged expiratory phase or wheezing is appreciated. HEART: Normal rate, regular. ABDOMEN: Soft, nontender, nondistended. Bowel sounds are positive. MUSCULOSKELETAL: No cyanosis or clubbing. No pitting in the bilateral lower extremities. NEUROLOGIC: Nonfocal. LABORATORY DATA: Blood sugar ranges from 90-145. All culture results are negative to date. ASSESSMENT: 1. Acute hypoxic respiratory failure, resolved. 2. Pleural effusion on the left, lymphocytic exudate secondary after pulmonary tuberculosis. 3. Tuberculosis of the pleural space. DISCUSSION AND PLAN: The patient remains stable for transition out of the hospital. At this point, she has no further requirements for inpatient Pulmonary Critical Care opinion and I will sign off. I will have her return to clinic in a couple of weeks with a preclinic chest x-ray to make certain we establish a new baseline for her chest. We will follow through time to make certain that she does no t significantly change.
--- NOTE | 2018-03-19 09:10 | PQF ---
BONNIE LINDSAY GRACEILA FULLER [id number] [facility] A [id number] CLINICAL DOCUMENTATION CLARIFICATION FORM: POST DISCHARGE Addendum to original discharge summary date: ____ Late entry note date: __ Please exercise your independent, professional judgment in responding to the clarification form. Clinical indicators are provided on the bottom of this form for your review Please check appropriate box(s): Conflicting documentation was noted in the Medical Record, please clarify if patient is being treated/monitored for: [x ] Tuberculosis of the pleural [ ] Respiratory (lung) tubeculosis ( ) Tuberculosis with Black Lung ( ) primary respiratory tuberculosis [ ] Other diagnosis [ ] Unable to determine In addition, please specify: Present on Admission (POA): [ x ] Yes [ ] No [ ] Unable to determine For continuity of documentation, please document condition throughout progress notes and discharge summary. Thank You. CLINICAL INDICATORS - SIGNS / SYMPTOMS/ LABS positive Quantifeoron blood test RISK FACTORS exposure to TB many years TREATMENT Thoracentesis Pleural Biopsy Lung Biopsy (This form is maintained as a part of the permanent medical record) 2014 [employer]. All Rights Reserved [email or web address] [phone] MTDD
== END 2018-03-17 12:29 | disposition home or self-care (01) | DRG 166 ==
LOC: ERS 20:32 → 2SW 03-04 00:20 → 2NO 03-04 09:26 → T4-A 03-15 12:47
PROVIDERS: ADMIT Student in an Organized Health Care Education/Training Program; ATTEND Student in an Organized Health Care Education/Training Program
PROC: 0W9B3ZZ Drainage of Left Pleural Cavity, Percutaneous Approach (ICD-10-PCS; 2018-03-04)
PROC: 0BBP4ZX Excision of Left Pleura, Percutaneous Endoscopic Approach, Diagnostic (ICD-10-PCS; principal; 2018-03-12)
PROC: 0BBL4ZX Excision of Left Lung, Percutaneous Endoscopic Approach, Diagnostic (ICD-10-PCS; 2018-03-12)
PROC: 0W9B30Z Drainage of Left Pleural Cavity with Drainage Device, Percutaneous Approach (ICD-10-PCS; 2018-03-12)
DX: A15.6 Tuberculous pleurisy (principal); J96.01 Acute respiratory failure with hypoxia; J90 Pleural effusion, not elsewhere classified; R61 Generalized hyperhidrosis; I10 Essential (primary) hypertension; E78.5 Hyperlipidemia, unspecified; E11.9 Type 2 diabetes mellitus without complications; G89.4 Chronic pain syndrome; M79.605 Pain in left leg; M79.604 Pain in right leg; R63.4 Abnormal weight loss; E78.1 Pure hyperglyceridemia; F32.9 Major depressive disorder, single episode, unspecified; Z79.84 Long term (current) use of oral hypoglycemic drugs; Z79.899 Other long term (current) drug therapy; Z87.891 Personal history of nicotine dependence; Z68.23 Body mass index [BMI] 23.0-23.9, adult; Z83.1 Family history of other infectious and parasitic diseases
CPT/HCPCS: 32554; 36415; 36416; 71045; 71275; 80048; 80053; 81003; 81015; 82553; 82945; 83520; 83615; 84155; 84157; 84484; 85025; 85060; 85379; 85610; 85730; 86038; 86200; 86225; 86480; 87040; 87070; 87086; 87102; 87116; 87205; 87206; 87389; 87899; 88112; 88184; 88305; 88307; 88312; 89051; 93005; 93970; 94640; 94760; 96361; 96365; A4216; J0456; J0696; J1642; J1650; J1885; J2001; J2270; J2704; J3010; J3480; J7050; J7120; J7620; Q0162

== ENCOUNTER 2018-06-26 12:00 | Emergency (ER) | payer MEDICAID, SELFPAY ==
[2018-06-26] MEDS ORDERED: Ondansetron ODT 4 MG TAB ONE (12:52)
[2018-06-26] MEDS ORDERED: Acetaminophen 500 MG TAB ONE (12:52)
[2018-06-26 12:58] LABS: #Lymphocytes 0.8 thou/uL (1.20-3.40); #Monocytes 0.5 thou/uL (0.11-0.59); #Neutrophils 3.7 thou/uL (1.40-6.50); %Basophils 0.4 % (0.0-1.0); %Eosinophils 0.2 % (0.0-10.0); %Lymphocytes 16.3 % (21.0-51.0); %Monocytes 10.6 % (0.0-10.0); %Neutrophils 72.4 % (42.0-75.0); Hemoglobin 14.6 g/dL (12.0-16.0); Mean Corpuscular HGB CONC 33.7 g/dL (32.0-36.0); Mean Corpuscular Hemoglobin 29.7 pg (27.0-31.0); Mean Corpuscular Volume 88.2 fL (78.0-98.0); Mean Platelet Volume 8.1 fL (7.4-10.4); Platelet Count 200 thou/uL (130-400); RBC Distribution Width 14.4 % (11.5-14.5); White Blood Cell (WBC) Count 5.1 thou/uL (4.8-10.8)
[2018-06-26 13:21] LABS: ALT (SGPT) 27 U/L (8-55); AST (SGOT) 29 U/L (5-34); Albumin 4.4 g/dL (3.4-4.8); Alkaline Phosphatase 70 U/L (40-150); Anion Gap 14 mmol/L (10-20); BUN (Urea Nitrogen) 17 mg/dL (9.8-20.1); Bilirubin, Total 0.5 mg/dL (0.2-1.2); Calc. Creatinine Clearance 0 mL/min (70-130); Calcium 9.6 mg/dL (7.8-10.44); Carbon Dioxide 24 mmol/L (23-31); Chloride 100 mmol/L (98-107); Estimated GFR-MDRD 75; Glucose 109 mg/dL (80-115); Potassium 3.9 mmol/L (3.5-5.1); Protein, Total 8.4 g/dL (6.0-8.3); Sodium 134 mmol/L (136-145)
[2018-06-26 13:27] LABS: CKMB 0.5 ng/mL (0-6.6); Troponin I Less than 0.010 ng/mL (< 0.028)
[2018-06-26 13:31] LABS: Bilirubin Negative (Negative); Blood, Urine Negative (Negative); Clarity CLEAR (Clear); Glucose, Urine (Dipstick) Negative (Negative); Leukocyte Negative (Negative); Nitrite Negative (Negative); Protein, Urine (Dipstick) Negative (Neg-Trace); Specific Gravity, Urine 1.014 (1.002-1.036); Urobilinogen 0.2 mg/dL (0.2-1.0)
--- NOTE | 2018-06-26 14:26 | RAD ---
PORTABLE CHEST: 06/26/18 HISTORY: Possible TB. COMPARISON: 06/16/18. Linear stranding in the left mid lung is unchanged. There is blunting of the left CP angle which is a lso stable. The lung carr are otherwise clear and unchanged. Heart size is mildly prominent but sta ble. Mild aortic calcification. No evidence of vascular congestion. IMPRESSION: Stable chest findings when compared to recent exam. POS: TOM
--- NOTE | 2018-06-26 14:37 | CT ---
CT BRAIN: HISTORY: A 68-year-old with a history of headache. TECHNIQUE: Noncontrast enhanced CT images of the brain obtained. FINDINGS: The brain is unremarkable. No evidence of intracranial masses, hemorrhages, strokes, or contusions s een. The ventricles are of normal size. IMPRESSION: Normal CT brain. POS: KARI
== END 2018-06-26 15:05 | disposition home or self-care (01) ==
LOC: ERS 12:00
DX: R51 Headache (principal); R11.2 Nausea with vomiting, unspecified; E11.9 Type 2 diabetes mellitus without complications; E78.2 Mixed hyperlipidemia; I10 Essential (primary) hypertension; F32.9 Major depressive disorder, single episode, unspecified; Z79.84 Long term (current) use of oral hypoglycemic drugs; Z79.899 Other long term (current) drug therapy
CPT/HCPCS: 36415; 70450; 71045; 80053; 81003; 82553; 84484; 85025; 93005; Q0162

== ENCOUNTER 2025-09-13 09:18 | Outpatient (CLI) | payer OTHER | END 2025-09-13 09:19 | disposition home or self-care (01) | LOC: BICMRI 09:18 | PROVIDERS: ATTEND Physician Assistant Surgical | DX: M54.16 Radiculopathy, lumbar region (principal); M48.07 Spinal stenosis, lumbosacral region; M48.061 Spinal stenosis, lumbar region without neurogenic claudication | CPT/HCPCS: 72148 ==